=== PATIENT | male | born 1945 | race African-American/Black ===

== ENCOUNTER 2017-04-06 17:59 | Inpatient (IN) ==
[2017-04-06] MEDS ORDERED: FUROSEMIDE 100 MG/10 ML VIAL IV STA (18:20)
[2017-04-06] MEDS ORDERED: LEVOFLOXACIN INJ 750 MG in PREMIX 1 EACH IV STA (18:20)
[2017-04-06] MEDS ORDERED: TERBUTALINE 1 MG/1 ML VIAL SUBCUT ONE ×4 (18:20→19:38)
[2017-04-06] MEDS ORDERED: ONDANSETRON 4 MG/2 ML VIAL IV STA (18:20)
[2017-04-06] MEDS ORDERED: methylPREDNISolone SOD SUC 125 MG/2 ML VIAL IV STA ×2 (18:20→19:37)
[2017-04-06] MEDS ORDERED: methylPREDNISolone SOD SUC 125 MG/2 ML VIAL ONE ×2 (18:22→19:22)
[2017-04-06] MEDS ORDERED: FUROSEMIDE 40 MG/4 ML VIAL ONE (18:22)
[2017-04-06] MEDS ORDERED: ALBUTEROL 2.5 MG/3 ML NEB RESP TX SCH (18:30)
[2017-04-06 18:38] LABS: Basophils % 0.4 % (0.0-0.8); Eosinophils # 0.1 10*3/uL (0.0-0.87); Eosinophils % 1.2 % (0.00-10.9); Hematocrit 41.2 VOL% (42.0-52.0); Hemoglobin 14.3 GM/DL (14.0-18.0); Immature Granulocytes % 0.2 %; Immature Granulocytes Absolute 0.01 #; Lymphocytes # 1.1 10*3/uL (1.4-4.0); Lymphocytes % 19.9 % (21.2-54.2); Mean Corpuscular HGB Conc 34.7 GM/DL (32-36); Mean Corpuscular Hemoglobin 32 PG (27-34); Mean Corpuscular Volume 91.2 FL (87-102); Mean Platelet Volume 9.6 FL (9.6-12.0); Monocytes # 0.5 10*3/uL (0.11-0.8); Monocytes % 8.5 % (1.7-12.7); Neutrophils # 3.9 10*3/uL (1.4-7.4); Neutrophils % 69.8 % (38.7-73.9); Platelet Count 277 T/CUMM (130-400); Red Blood Count 4.52 MC/CUMM (3.8-5.5); Red Cell Distribution Width 14.4 % (9.3-17.3); White Blood Count 5.6 T/CUMM (4-12)
[2017-04-06 18:49] LABS: PT Patient Result 10.4 SECS; Partial Thromboplastin Time 23.6 SECS (0-40)
[2017-04-06 18:56] LABS: Albumin 3.9 G/DL (3.4-5.0); Bilirubin,Total 0.7 MG/DL (0.2-1.0); CKMB % 5.2 %; Calcium 9.5 MG/DL (8.5-10.1); Osmolality,Calculated 290.5 MOS/KG (273-304); Total Protein 8.1 G/DL (6.4-8.3); Troponin I Only 0.016 NG/ML (0.00-0.045)
[2017-04-06] MEDS ORDERED: ONDANSETRON 4 MG/2 ML VIAL ONE (18:59)
[2017-04-06] MEDS ORDERED: LEVOFLOXACIN INJ 150 ML IV ONE (18:59)
[2017-04-06 20:03] LABS: Allen Test Positive; Pt O2 Delivery Device Other
[2017-04-06 20:04] LABS: ABG Base Excess -4.4 MMOL/L (-2.5-2.5); ABG PO2 222.2 MM HG (80-95); ABG TCO2 30.9 MMOL/L (23-27)
[2017-04-06 20:07] LABS: ABG PH 7.092 (7.35-7.45)
[2017-04-06] MEDS: ENOXAPARIN 40 MG/0.4 ML SYRINGE SUBCUT SCH (21:43)
[2017-04-06] MEDS: SODIUM CHLORIDE 0.9% 1,000 ML IV SCH (21:43)
[2017-04-06 22:07] LABS: ABG Base Excess -5.5 MMOL/L (-2.5-2.5); ABG HCO3 19.8 MMOL/L (20-26); ABG Oxygen Saturation 93.9 % (95-100); ABG PCO2 62.5 MM HG (35-48); ABG PO2 80.8 MM HG (80-95); ABG TCO2 21.8 MMOL/L (23-27)
[2017-04-06 22:10] LABS: ABG PH 7.196 (7.35-7.45)
[2017-04-06] MEDS ORDERED: MAGNESIUM SULF RIDER 2 GM in PREMIX 1 EACH IV ONE (22:25)
[2017-04-06] MEDS ORDERED: MAGNESIUM SULF RIDER 50 ML IV ONE (22:27)
[2017-04-06] MEDS: ALBUTEROL/IPRATROPIUM 3 ML NEB RESP TX SCH (23:06)
[2017-04-07 00:50] LABS: Apearance,Urine CLOUDY (Clear); Bacteria,Urine Many /HPF (Few); Bilirubin,Urine Negative (Negative); Blood, Urine Moderate mg/dL (Negative); Glucose,Urine (UA) Negative (Negative); Hyaline Casts,Urine 4 /LPF (0-3); Ketones,Urine Negative (Negative); Mucus,Urine Occasional /LPF (Occasional); Nitrite,Urine Negative (Negative); Protein,Urine Negative; RBC,Urine 13 /HPF (0-4); Squamous Epithelial Cell,Urine Occasional /HPF (0-10); Urine Color Yellow (Yellow); Urine Specific Gravity 1.016 (1.001-1.035); Urine Urobilinogen < 2.0 EU/DL (0.2-1.0); WBC,Urine 34 /HPF (0-6)
[2017-04-07] MEDS: ALBUTEROL/IPRATROPIUM 3 ML NEB RESP TX SCH ×6 (00:58→19:07)
[2017-04-07] MEDS: methylPREDNISolone SOD SUC 40 MG/1 ML VIAL IV SCH ×3 (02:18→20:03)
[2017-04-07 04:11] LABS: ABG Base Excess -1.3 MMOL/L (-2.5-2.5); ABG HCO3 26.3 MMOL/L (20-26); ABG Oxygen Saturation 91.2 % (95-100); ABG PCO2 56.9 MM HG (35-48); ABG PH 7.283 (7.35-7.45); ABG PO2 62.7 MM HG (80-95); ABG TCO2 28.1 MMOL/L (23-27)
[2017-04-07 06:06] LABS: Hematocrit 37.4 VOL% (42.0-52.0); Hemoglobin 12.8 GM/DL (14.0-18.0); Immature Granulocytes % 0.2 %; Immature Granulocytes Absolute 0.01 #; Lymphocytes # 0.3 10*3/uL (1.4-4.0); Lymphocytes % 5.6 % (21.2-54.2); Mean Corpuscular HGB Conc 34.2 GM/DL (32-36); Mean Corpuscular Hemoglobin 31 PG (27-34); Mean Corpuscular Volume 91.7 FL (87-102); Mean Platelet Volume 9.7 FL (9.6-12.0); Monocytes # 0.1 10*3/uL (0.11-0.8); Monocytes % 2.2 % (1.7-12.7); Neutrophils # 5.6 10*3/uL (1.4-7.4); Platelet Count 228 T/CUMM (130-400); Red Blood Count 4.08 MC/CUMM (3.8-5.5); Red Cell Distribution Width 14.6 % (9.3-17.3)
[2017-04-07 06:39] LABS: Giant Platelets Few; Hypochromasia 1+; Lymphocytes 5 % (20-55); Ovalocytes Slight; Platelet Estimate Adequate; Segmented Neutrophils 93 % (50-85); Total Cells Counted 100
[2017-04-07 06:41] LABS: Osmolality,Calculated 294.3 MOS/KG (273-304); Potassium 4.5 MMOL/L (3.5-5.1)
[2017-04-07] MEDS ORDERED: POTASSIUM CHLORIDE RIDER 10 MEQ in PREMIX 1 EACH IV PRN (07:03)
[2017-04-07] MEDS ORDERED: DEXTROSE 50% 25 GM/50 ML VIAL IV PRN (07:30)
[2017-04-07] MEDS ORDERED: GLUCAGON 1 MG VIAL IM PRN (07:30)
[2017-04-07] MEDS: INSULIN REGULAR 100 UNIT/ML SUBCUT SCH ×4 (07:41→21:16)
[2017-04-07] MEDS ORDERED: POTASSIUM CHLORIDE INJ 40 MEQ in SODIUM CHLORIDE 0.9% 500 ML IV ONE (08:00)
[2017-04-07] MEDS: IPRATROPIUM 500 MCG/2.5 ML NEB RESP TX SCH ×3 (08:17→15:07)
[2017-04-07] MEDS ORDERED: DORZOLAMIDE 2% OPH SOLN 10 ML BOTTLE BOTH EYES SCH (09:00)
[2017-04-07] MEDS: BRIMONIDINE 0.15% OPH SOLN 1 DROP/DROPS BOTTLE BOTH EYES SCH ×2 (11:39→21:45)
[2017-04-07] MEDS: PANTOPRAZOLE 40 MG TABLET PO SCH (11:40)
[2017-04-07] MEDS: SODIUM CHLORIDE 0.9% 1,000 ML IV SCH (19:50)
[2017-04-07] MEDS: LEVOFLOXACIN INJ 750 MG in PREMIX 1 EACH IV SCH (20:03)
[2017-04-07] MEDS: ENOXAPARIN 40 MG/0.4 ML SYRINGE SUBCUT SCH (21:42)
[2017-04-07] MEDS: DOXAZOSIN 4 MG TABLET PO SCH (21:43)
[2017-04-07] MEDS: BIMATOPROST 0.01% OPH SOLN 2.5 ML BOTTLE BOTH EYES SCH (21:45)
[2017-04-07] MEDS: DORZOLAMIDE BOTH EYES SCH (21:45)
[2017-04-08] MEDS: methylPREDNISolone SOD SUC 40 MG/1 ML VIAL IV SCH ×4 (02:09→22:25)
[2017-04-08 03:53] LABS: ABG Base Excess 1.4 MMOL/L (-2.5-2.5); ABG HCO3 25.7 MMOL/L (20-26); ABG Oxygen Saturation 99.1 % (95-100); ABG PH 7.371 (7.35-7.45); ABG TCO2 24.4 MMOL/L (23-27); Allen Test Positive
[2017-04-08] MEDS: ALBUTEROL/IPRATROPIUM 3 ML NEB RESP TX SCH ×4 (03:56→20:05)
[2017-04-08 05:00] LABS: Hematocrit 32.8 VOL% (42.0-52.0); Hemoglobin 11.4 GM/DL (14.0-18.0); Immature Granulocytes % 0.5 %; Immature Granulocytes Absolute 0.03 #; Lymphocytes # 0.5 10*3/uL (1.4-4.0); Lymphocytes % 7.1 % (21.2-54.2); Mean Corpuscular HGB Conc 34.8 GM/DL (32-36); Mean Corpuscular Hemoglobin 32 PG (27-34); Mean Corpuscular Volume 91.9 FL (87-102); Mean Platelet Volume 9.9 FL (9.6-12.0); Monocytes # 0.3 10*3/uL (0.11-0.8); Monocytes % 4.1 % (1.7-12.7); Neutrophils # 5.6 10*3/uL (1.4-7.4); Neutrophils % 88.3 % (38.7-73.9); Platelet Count 200 T/CUMM (130-400); Red Blood Count 3.57 MC/CUMM (3.8-5.5); Red Cell Distribution Width 14.8 % (9.3-17.3); White Blood Count 6.4 T/CUMM (4-12)
[2017-04-08 05:35] LABS: Calcium 8.6 MG/DL (8.5-10.1); Magnesium 2.4 MG/DL (1.8-2.4); Osmolality,Calculated 285.4 MOS/KG (273-304)
[2017-04-08] MEDS: IPRATROPIUM 500 MCG/2.5 ML NEB RESP TX SCH (08:42)
[2017-04-08] MEDS: DORZOLAMIDE BOTH EYES SCH ×2 (09:04→21:50)
[2017-04-08] MEDS: PANTOPRAZOLE 40 MG TABLET PO SCH (09:04)
[2017-04-08] MEDS: BRIMONIDINE 0.15% OPH SOLN 1 DROP/DROPS BOTTLE BOTH EYES SCH ×2 (09:04→21:51)
[2017-04-08] MEDS: LEVOFLOXACIN INJ 750 MG in PREMIX 1 EACH IV SCH (09:06)
[2017-04-08] MEDS: INSULIN REGULAR 100 UNIT/ML SUBCUT SCH ×4 (09:10→21:48)
[2017-04-08] MEDS: LOSARTAN/HCTZ 50-12.5 MG TABLET PO SCH (11:29)
[2017-04-08] MEDS: METOPROLOL TARTRATE 25 MG TABLET PO SCH ×2 (11:29→21:48)
[2017-04-08] MEDS: DOXAZOSIN 4 MG TABLET PO SCH (21:48)
[2017-04-08] MEDS: BIMATOPROST 0.01% OPH SOLN 2.5 ML BOTTLE BOTH EYES SCH (21:52)
[2017-04-09] MEDS: ALBUTEROL/IPRATROPIUM 3 ML NEB RESP TX SCH ×4 (01:09→19:30)
[2017-04-09] MEDS ORDERED: LIDOCAINE 2% TOP JELLY 20 ML VIAL INTRAURETH ONE (06:23)
[2017-04-09] MEDS: INSULIN REGULAR 100 UNIT/ML SUBCUT SCH ×4 (07:48→21:51)
[2017-04-09] MEDS: LOSARTAN/HCTZ 50-12.5 MG TABLET PO SCH (08:44)
[2017-04-09] MEDS: methylPREDNISolone SOD SUC 40 MG/1 ML VIAL IV SCH ×2 (08:44→20:37)
[2017-04-09] MEDS: METOPROLOL TARTRATE 25 MG TABLET PO SCH ×2 (08:44→20:35)
[2017-04-09] MEDS: PANTOPRAZOLE 40 MG TABLET PO SCH (08:44)
[2017-04-09] MEDS: DORZOLAMIDE BOTH EYES SCH ×2 (08:45→20:37)
[2017-04-09] MEDS: LEVOFLOXACIN INJ 750 MG in PREMIX 1 EACH IV SCH (08:45)
[2017-04-09] MEDS: BRIMONIDINE 0.15% OPH SOLN 1 DROP/DROPS BOTTLE BOTH EYES SCH ×2 (08:46→20:37)
[2017-04-09] MEDS: DOXAZOSIN 4 MG TABLET PO SCH (20:35)
[2017-04-09] MEDS: ATORVASTATIN 10 MG TABLET PO SCH (20:35)
[2017-04-09] MEDS: BIMATOPROST 0.01% OPH SOLN 2.5 ML BOTTLE BOTH EYES SCH (20:37)
[2017-04-10 06:18] LABS: Eosinophils % 0.2 % (0.00-10.9); Hematocrit 37.7 VOL% (42.0-52.0); Hemoglobin 13.1 GM/DL (14.0-18.0); Immature Granulocytes % 0.3 %; Immature Granulocytes Absolute 0.02 #; Lymphocytes # 1.9 10*3/uL (1.4-4.0); Lymphocytes % 29.2 % (21.2-54.2); Mean Corpuscular HGB Conc 34.7 GM/DL (32-36); Mean Corpuscular Hemoglobin 32 PG (27-34); Mean Corpuscular Volume 90.6 FL (87-102); Mean Platelet Volume 9.9 FL (9.6-12.0); Monocytes # 0.6 10*3/uL (0.11-0.8); Monocytes % 9.3 % (1.7-12.7); Neutrophils # 4.1 10*3/uL (1.4-7.4); Platelet Count 223 T/CUMM (130-400); Red Blood Count 4.16 MC/CUMM (3.8-5.5); Red Cell Distribution Width 14.1 % (9.3-17.3); White Blood Count 6.6 T/CUMM (4-12)
[2017-04-10 06:52] LABS: Calcium 8.6 MG/DL (8.5-10.1); Magnesium 2.3 MG/DL (1.8-2.4); Osmolality,Calculated 276.8 MOS/KG (273-304); Potassium 4.1 MMOL/L (3.5-5.1); Risk Ratio 2.54; VLDL CHOLESTEROL 10.8 MG/DL
[2017-04-10] MEDS: ALBUTEROL/IPRATROPIUM 3 ML NEB RESP TX SCH ×4 (08:37→19:42)
[2017-04-10] MEDS ORDERED: ASPIRIN EC 81 MG TABLET PO SCH (09:00)
[2017-04-10] MEDS: DORZOLAMIDE BOTH EYES SCH (09:04)
[2017-04-10] MEDS: PANTOPRAZOLE 40 MG TABLET PO SCH (09:04)
[2017-04-10] MEDS: METOPROLOL TARTRATE 25 MG TABLET PO SCH (09:04)
[2017-04-10] MEDS: LOSARTAN/HCTZ 50-12.5 MG TABLET PO SCH (09:04)
[2017-04-10] MEDS: LEVOFLOXACIN INJ 750 MG in PREMIX 1 EACH IV SCH (09:04)
[2017-04-10] MEDS: methylPREDNISolone SOD SUC 40 MG/1 ML VIAL IV SCH (09:05)
[2017-04-10] MEDS: BRIMONIDINE 0.15% OPH SOLN 1 DROP/DROPS BOTTLE BOTH EYES SCH (09:05)
[2017-04-10] MEDS: INSULIN REGULAR 100 UNIT/ML SUBCUT SCH ×3 (09:09→16:43)
[2017-04-11] MEDS: ALBUTEROL/IPRATROPIUM 3 ML NEB RESP TX SCH ×3 (00:52→13:47)
[2017-04-11] MEDS: methylPREDNISolone SOD SUC 40 MG/1 ML VIAL IV SCH ×2 (01:13→09:25)
[2017-04-11] MEDS: DOXAZOSIN 4 MG TABLET PO SCH (01:15)
[2017-04-11] MEDS: ATORVASTATIN 10 MG TABLET PO SCH (01:16)
[2017-04-11] MEDS: BIMATOPROST 0.01% OPH SOLN 2.5 ML BOTTLE BOTH EYES SCH (01:16)
[2017-04-11] MEDS: METOPROLOL TARTRATE 25 MG TABLET PO SCH ×2 (01:16→09:29)
[2017-04-11] MEDS: BRIMONIDINE 0.15% OPH SOLN 1 DROP/DROPS BOTTLE BOTH EYES SCH ×2 (01:16→09:25)
[2017-04-11] MEDS: DORZOLAMIDE BOTH EYES SCH ×2 (01:16→09:25)
[2017-04-11] MEDS: INSULIN REGULAR 100 UNIT/ML SUBCUT SCH ×3 (01:19→12:23)
[2017-04-11] MEDS ORDERED: LIDOCAINE 2% TOP JELLY 20 ML VIAL INTRAURETH ONE ×2 (06:57→07:34)
[2017-04-11 07:01] LABS: Hematocrit 38.9 VOL% (42.0-52.0); Hemoglobin 13.4 GM/DL (14.0-18.0); Immature Granulocytes % 0.2 %; Immature Granulocytes Absolute 0.01 #; Lymphocytes % 22.9 % (21.2-54.2); Mean Corpuscular HGB Conc 34.4 GM/DL (32-36); Mean Corpuscular Hemoglobin 31 PG (27-34); Mean Corpuscular Volume 90.7 FL (87-102); Mean Platelet Volume 9.7 FL (9.6-12.0); Monocytes # 0.2 10*3/uL (0.11-0.8); Monocytes % 5.6 % (1.7-12.7); Neutrophils % 71.3 % (38.7-73.9); Platelet Count 208 T/CUMM (130-400); Red Blood Count 4.29 MC/CUMM (3.8-5.5); White Blood Count 4.1 T/CUMM (4-12)
[2017-04-11] MEDS ORDERED: LACTATED RINGERS 1,000 ML IV SCH (07:30)
[2017-04-11 07:37] LABS: Calcium 9.1 MG/DL (8.5-10.1); Potassium 4.2 MMOL/L (3.5-5.1)
[2017-04-11] MEDS ORDERED: MIDAZOLAM 2 MG/2 ML VIAL ONE (08:04)
[2017-04-11] MEDS ORDERED: EPINEPHrine 1 MG/ML VIAL ONE (08:04)
[2017-04-11] MEDS ORDERED: fentaNYL 100 MCG/2 ML VIAL ONE (08:04)
[2017-04-11] MEDS ORDERED: PROPOFOL 200 MG/20 ML VIAL IV ONE (08:05)
[2017-04-11] MEDS: LEVOFLOXACIN INJ 750 MG in PREMIX 1 EACH IV SCH (09:25)
[2017-04-11] MEDS: PANTOPRAZOLE 40 MG TABLET PO SCH (09:26)
[2017-04-11] MEDS: LOSARTAN/HCTZ 50-12.5 MG TABLET PO SCH (09:29)
[2017-04-11 12:26] VITALS: BP 106/58
== END 2017-04-11 15:51 | disposition home or self-care (01) | DRG 987 ==
LOC: N.ED 17:59 → N.EDINP 20:16 → SUATTDRO 20:16 → N.ICU 20:54 → N.5E 04-08 10:38
PROVIDERS: ADMIT Hospitalist; ATTEND Internal Medicine

== ENCOUNTER 2017-04-25 09:53 | Inpatient (IN) ==
[2017-04-25] MEDS ORDERED: MAGNESIUM SULF RIDER 2 GM in PREMIX 1 EACH IV STA (10:05)
[2017-04-25] MEDS ORDERED: SODIUM CHLORIDE 0.9% 500 ML IV STA (10:05)
[2017-04-25] MEDS ORDERED: methylPREDNISolone SOD SUC 125 MG/2 ML VIAL IV STA (10:05)
[2017-04-25] MEDS ORDERED: methylPREDNISolone SOD SUC 125 MG/2 ML VIAL ONE (10:22)
[2017-04-25 10:23] LABS: Basophils % 0.5 % (0.0-0.8); Eosinophils # 0.3 10*3/uL (0.0-0.87); Eosinophils % 4.6 % (0.00-10.9); Hematocrit 40.7 VOL% (42.0-52.0); Hemoglobin 13.6 GM/DL (14.0-18.0); Immature Granulocytes % 0.4 %; Immature Granulocytes Absolute 0.02 #; Lymphocytes # 1.6 10*3/uL (1.4-4.0); Lymphocytes % 27.8 % (21.2-54.2); Mean Corpuscular HGB Conc 33.4 GM/DL (32-36); Mean Corpuscular Hemoglobin 32 PG (27-34); Mean Corpuscular Volume 94.4 FL (87-102); Mean Platelet Volume 9.7 FL (9.6-12.0); Monocytes # 0.5 10*3/uL (0.11-0.8); Monocytes % 9.5 % (1.7-12.7); Neutrophils # 3.3 10*3/uL (1.4-7.4); Neutrophils % 57.2 % (38.7-73.9); Platelet Count 233 T/CUMM (130-400); Red Blood Count 4.31 MC/CUMM (3.8-5.5); Red Cell Distribution Width 14.6 % (9.3-17.3); White Blood Count 5.7 T/CUMM (4-12)
[2017-04-25] MEDS ORDERED: ALBUTEROL 2.5 MG/3 ML NEB RESP TX SCH (10:30)
[2017-04-25 11:13] LABS: Albumin 3.6 G/DL (3.4-5.0); Bilirubin,Total 1.1 MG/DL (0.2-1.0); Calcium 8.9 MG/DL (8.5-10.1); Osmolality,Calculated 276.8 MOS/KG (273-304); Potassium 4.4 MMOL/L (3.5-5.1); Total Protein 7.2 G/DL (6.4-8.3)
[2017-04-25] MEDS ORDERED: ONDANSETRON 4 MG/2 ML VIAL IV PRN (12:39)
[2017-04-25] MEDS ORDERED: ACETAMINOPHEN 325 MG TABLET PO PRN (12:39)
[2017-04-25] MEDS ORDERED: ALBUTEROL 2.5 MG/3 ML NEB RESP TX PRN (12:47)
[2017-04-25] MEDS: methylPREDNISolone SOD SUC 125 MG/2 ML VIAL IV SCH ×2 (18:43→21:51)
[2017-04-25] MEDS: ALBUTEROL 2.5 MG/3 ML NEB RESP TX SCH (21:25)
[2017-04-25] MEDS: MONTELUKAST 10 MG TABLET PO SCH (21:51)
[2017-04-25] MEDS: FLUTICASONE/SALMETEROL 500-50 DISKUS 14 DOSE INH SCH (21:57)
[2017-04-26] MEDS: ALBUTEROL 2.5 MG/3 ML NEB RESP TX SCH ×8 (02:25→23:50)
[2017-04-26] MEDS: methylPREDNISolone SOD SUC 125 MG/2 ML VIAL IV SCH ×4 (04:48→22:41)
[2017-04-26 06:29] LABS: Hematocrit 35.1 VOL% (42.0-52.0); Hemoglobin 11.8 GM/DL (14.0-18.0); Immature Granulocytes % 0.3 %; Immature Granulocytes Absolute 0.01 #; Lymphocytes # 0.6 10*3/uL (1.4-4.0); Lymphocytes % 17.3 % (21.2-54.2); Mean Corpuscular HGB Conc 33.6 GM/DL (32-36); Mean Corpuscular Hemoglobin 32 PG (27-34); Mean Corpuscular Volume 93.9 FL (87-102); Mean Platelet Volume 9.9 FL (9.6-12.0); Monocytes # 0.1 10*3/uL (0.11-0.8); Monocytes % 3.2 % (1.7-12.7); Neutrophils # 2.7 10*3/uL (1.4-7.4); Neutrophils % 79.2 % (38.7-73.9); Platelet Count 206 T/CUMM (130-400); Red Blood Count 3.74 MC/CUMM (3.8-5.5); Red Cell Distribution Width 14.6 % (9.3-17.3); White Blood Count 3.4 T/CUMM (4-12)
[2017-04-26 07:04] LABS: Calcium 8.6 MG/DL (8.5-10.1); Osmolality,Calculated 277.8 MOS/KG (273-304); Potassium 4.4 MMOL/L (3.5-5.1)
[2017-04-26] MEDS ORDERED: ALBUTEROL 2.5 MG/3 ML NEB RESP TX PRN (07:23)
[2017-04-26 07:38] LABS: Apearance,Urine CLEAR (Clear); Bilirubin,Urine Negative (Negative); Blood, Urine Negative (Negative); Glucose,Urine (UA) 50 mg/dL (Negative); Ketones,Urine Negative (Negative); Mucus,Urine Occasional /LPF (Occasional); Nitrite,Urine Negative (Negative); Protein,Urine Negative; RBC,Urine 2 /HPF (0-4); Squamous Epithelial Cell,Urine Occasional /HPF (0-10); Urine Color Yellow (Yellow); Urine Specific Gravity 1.024 (1.001-1.035); WBC,Urine 2 /HPF (0-6)
[2017-04-26] MEDS: IPRATROPIUM 500 MCG/2.5 ML NEB RESP TX SCH ×4 (07:42→19:42)
[2017-04-26] MEDS: BRIMONIDINE 0.15% OPH SOLN 1 DROP/DROPS BOTTLE BOTH EYES SCH ×2 (08:53→20:47)
[2017-04-26] MEDS: FLUTICASONE/SALMETEROL 500-50 DISKUS 14 DOSE INH SCH ×2 (08:53→20:50)
[2017-04-26] MEDS: METOPROLOL TARTRATE 25 MG TABLET PO SCH ×2 (08:54→20:46)
[2017-04-26] MEDS: LOSARTAN/HCTZ 50-12.5 MG TABLET PO SCH (08:54)
[2017-04-26] MEDS: DORZOLAMIDE 2% OPH SOLN 10 ML BOTTLE BOTH EYES SCH ×2 (08:54→20:47)
[2017-04-26] MEDS: PANTOPRAZOLE 40 MG TABLET PO SCH (08:54)
[2017-04-26] MEDS: ATORVASTATIN 10 MG TABLET PO SCH (20:45)
[2017-04-26] MEDS: DOXAZOSIN 4 MG TABLET PO SCH (20:45)
[2017-04-26] MEDS: MONTELUKAST 10 MG TABLET PO SCH (20:46)
[2017-04-26] MEDS: BIMATOPROST 0.01% OPH SOLN 2.5 ML BOTTLE BOTH EYES SCH (20:46)
[2017-04-27] MEDS: ALBUTEROL 2.5 MG/3 ML NEB RESP TX SCH ×2 (03:47→08:09)
[2017-04-27] MEDS: methylPREDNISolone SOD SUC 125 MG/2 ML VIAL IV SCH (04:08)
[2017-04-27 06:45] LABS: Hematocrit 34.7 VOL% (42.0-52.0); Hemoglobin 11.9 GM/DL (14.0-18.0); Immature Granulocytes % 0.4 %; Immature Granulocytes Absolute 0.03 #; Lymphocytes # 0.6 10*3/uL (1.4-4.0); Lymphocytes % 7.7 % (21.2-54.2); Mean Corpuscular HGB Conc 34.3 GM/DL (32-36); Mean Corpuscular Hemoglobin 32 PG (27-34); Mean Corpuscular Volume 92.3 FL (87-102); Mean Platelet Volume 10.4 FL (9.6-12.0); Monocytes # 0.1 10*3/uL (0.11-0.8); Monocytes % 1.8 % (1.7-12.7); Neutrophils # 6.9 10*3/uL (1.4-7.4); Neutrophils % 90.1 % (38.7-73.9); Platelet Count 204 T/CUMM (130-400); Red Blood Count 3.76 MC/CUMM (3.8-5.5); White Blood Count 7.7 T/CUMM (4-12)
[2017-04-27 07:24] LABS: Calcium 8.4 MG/DL (8.5-10.1); Osmolality,Calculated 282.5 MOS/KG (273-304)
[2017-04-27] MEDS: IPRATROPIUM 500 MCG/2.5 ML NEB RESP TX SCH ×4 (08:09→20:51)
[2017-04-27] MEDS ORDERED: BISACODYL 5 MG TABLET PO ONE (08:10)
[2017-04-27] MEDS: FLUTICASONE/SALMETEROL 500-50 DISKUS 14 DOSE INH SCH ×2 (08:33→20:18)
[2017-04-27] MEDS: METOPROLOL TARTRATE 25 MG TABLET PO SCH ×2 (08:33→20:16)
[2017-04-27] MEDS: POLYETHYLENE GLYCOL POWDER 17 GM PACK PO SCH (08:33)
[2017-04-27] MEDS: PANTOPRAZOLE 40 MG TABLET PO SCH (08:33)
[2017-04-27] MEDS: predniSONE 10 MG TABLET PO SCH (08:33)
[2017-04-27] MEDS: BRIMONIDINE 0.15% OPH SOLN 1 DROP/DROPS BOTTLE BOTH EYES SCH ×2 (08:33→20:19)
[2017-04-27] MEDS: LOSARTAN/HCTZ 50-12.5 MG TABLET PO SCH (08:33)
[2017-04-27] MEDS: DORZOLAMIDE 2% OPH SOLN 10 ML BOTTLE BOTH EYES SCH ×2 (08:34→20:19)
[2017-04-27] MEDS: DOXAZOSIN 4 MG TABLET PO SCH (20:16)
[2017-04-27] MEDS: MONTELUKAST 10 MG TABLET PO SCH (20:16)
[2017-04-27] MEDS: ATORVASTATIN 10 MG TABLET PO SCH (20:16)
[2017-04-27] MEDS: BIMATOPROST 0.01% OPH SOLN 2.5 ML BOTTLE BOTH EYES SCH (20:18)
[2017-04-28 07:05] LABS: Eosinophils % 0.1 % (0.00-10.9); Hematocrit 33.2 VOL% (42.0-52.0); Hemoglobin 11.3 GM/DL (14.0-18.0); Immature Granulocytes % 0.3 %; Immature Granulocytes Absolute 0.02 #; Lymphocytes # 1.7 10*3/uL (1.4-4.0); Lymphocytes % 23.4 % (21.2-54.2); Mean Corpuscular Hemoglobin 32 PG (27-34); Mean Corpuscular Volume 93.8 FL (87-102); Mean Platelet Volume 10.4 FL (9.6-12.0); Monocytes # 0.6 10*3/uL (0.11-0.8); Monocytes % 7.7 % (1.7-12.7); Neutrophils # 5.1 10*3/uL (1.4-7.4); Neutrophils % 68.5 % (38.7-73.9); Platelet Count 203 T/CUMM (130-400); Red Blood Count 3.54 MC/CUMM (3.8-5.5); Red Cell Distribution Width 14.8 % (9.3-17.3); White Blood Count 7.4 T/CUMM (4-12)
[2017-04-28] MEDS: IPRATROPIUM 500 MCG/2.5 ML NEB RESP TX SCH (07:18)
[2017-04-28 07:32] LABS: Calcium 8.5 MG/DL (8.5-10.1); Osmolality,Calculated 282.4 MOS/KG (273-304); Potassium 4.2 MMOL/L (3.5-5.1)
[2017-04-28] MEDS: POLYETHYLENE GLYCOL POWDER 17 GM PACK PO SCH (08:46)
[2017-04-28] MEDS: METOPROLOL TARTRATE 25 MG TABLET PO SCH (08:46)
[2017-04-28] MEDS: PANTOPRAZOLE 40 MG TABLET PO SCH (08:46)
[2017-04-28] MEDS: FLUTICASONE/SALMETEROL 500-50 DISKUS 14 DOSE INH SCH (08:46)
[2017-04-28] MEDS: predniSONE 10 MG TABLET PO SCH (08:46)
[2017-04-28] MEDS: LOSARTAN/HCTZ 50-12.5 MG TABLET PO SCH (08:46)
[2017-04-28] MEDS: DORZOLAMIDE 2% OPH SOLN 10 ML BOTTLE BOTH EYES SCH (08:46)
[2017-04-28] MEDS: BRIMONIDINE 0.15% OPH SOLN 1 DROP/DROPS BOTTLE BOTH EYES SCH (08:46)
[2017-04-28 08:49] VITALS: BP 123/72
== END 2017-04-28 10:00 | disposition home or self-care (01) | DRG 191 ==
LOC: N.ED 09:53 → N.EDINP 16:42 → N.5E 16:58

== ENCOUNTER 2017-06-03 19:33 | Inpatient (IN) ==
[2017-06-03] MEDS ORDERED: ALBUTEROL/IPRATROPIUM 3 ML NEB RESP TX STA (19:58)
[2017-06-03] MEDS ORDERED: methylPREDNISolone SOD SUC 125 MG/2 ML VIAL IV STA (19:58)
[2017-06-03] MEDS ORDERED: FUROSEMIDE 100 MG/10 ML VIAL IV STA (19:58)
[2017-06-03 20:06] LABS: Basophils # 0.1 10*3/uL (0.0-0.2); Basophils % 0.8 % (0.0-0.8); Eosinophils # 0.2 10*3/uL (0.0-0.87); Eosinophils % 2.4 % (0.00-10.9); Hematocrit 41.8 VOL% (42.0-52.0); Hemoglobin 13.6 GM/DL (14.0-18.0); Immature Granulocytes % 0.2 %; Immature Granulocytes Absolute 0.02 #; Lymphocytes # 1.9 10*3/uL (1.4-4.0); Lymphocytes % 20.1 % (21.2-54.2); Mean Corpuscular HGB Conc 32.5 GM/DL (32-36); Mean Corpuscular Hemoglobin 31 PG (27-34); Mean Corpuscular Volume 95.2 FL (87-102); Mean Platelet Volume 9.2 FL (9.6-12.0); Monocytes # 1.5 10*3/uL (0.11-0.8); Monocytes % 15.7 % (1.7-12.7); Neutrophils # 5.6 10*3/uL (1.4-7.4); Neutrophils % 60.8 % (38.7-73.9); Platelet Count 239 T/CUMM (130-400); Red Blood Count 4.39 MC/CUMM (3.8-5.5); Red Cell Distribution Width 14.7 % (9.3-17.3); White Blood Count 9.2 T/CUMM (4-12)
[2017-06-03] MEDS ORDERED: CEFEPIME 2,000 MG in SODIUM CHLORIDE 0.9% 100 ML IV STA (20:07)
[2017-06-03] MEDS ORDERED: VANCOMYCIN INJ 1,000 MG in SODIUM CHLORIDE 0.9% 250 ML IV STA (20:08)
[2017-06-03 20:09] LABS: VBG Base Excess -1.9 MEQ/L (0-4); VBG HCO3 22.6 MEQ/L (24-28); VBG Oxygen Saturation 87.5 %; VBG PCO2 66.3 MMHG (41-51); VBG PH 7.231
[2017-06-03 20:47] LABS: Albumin 3.6 G/DL (3.4-5.0); Bilirubin,Total 0.4 MG/DL (0.2-1.0); Calcium 8.8 MG/DL (8.5-10.1); Osmolality,Calculated 282.5 MOS/KG (273-304); Total Protein 7.3 G/DL (6.4-8.3); Troponin I Only 0.028 NG/ML (0.00-0.045)
[2017-06-03] MEDS ORDERED: VANCOMYCIN 1,000 MG VIAL ONE (21:12)
[2017-06-03] MEDS ORDERED: FUROSEMIDE 20 MG/2 ML VIAL ONE (21:12)
[2017-06-03] MEDS ORDERED: CEFEPIME 2,000 MG VIAL ONE (21:12)
[2017-06-03] MEDS ORDERED: methylPREDNISolone SOD SUC 125 MG/2 ML VIAL ONE (21:12)
[2017-06-03] MEDS ORDERED: FUROSEMIDE 40 MG/4 ML VIAL ONE (21:12)
[2017-06-03 22:33] LABS: Eosinophils 7 % (0-10); Lymphocytes 9 % (20-55); Segmented Neutrophils 78 % (50-85); Total Cells Counted 100
[2017-06-03 22:34] LABS: Hypochromasia Slight; Platelet Estimate Adequate; Polychromasia Few
[2017-06-03] MEDS ORDERED: ONDANSETRON 4 MG/2 ML VIAL IV PRN (23:11)
[2017-06-03] MEDS ORDERED: ACETAMINOPHEN 325 MG TABLET PO PRN (23:11)
[2017-06-03] MEDS ORDERED: ALBUTEROL 2.5 MG/3 ML NEB RESP TX PRN (23:11)
[2017-06-04] MEDS: ALBUTEROL/IPRATROPIUM 3 ML NEB RESP TX SCH ×4 (00:23→20:48)
[2017-06-04 04:47] LABS: Basophils % 0.3 % (0.0-0.8); Hemoglobin 12.5 GM/DL (14.0-18.0); Immature Granulocytes % 0.4 %; Immature Granulocytes Absolute 0.03 #; Lymphocytes # 0.2 10*3/uL (1.4-4.0); Lymphocytes % 3.3 % (21.2-54.2); Mean Corpuscular HGB Conc 32.9 GM/DL (32-36); Mean Corpuscular Hemoglobin 31 PG (27-34); Mean Corpuscular Volume 94.3 FL (87-102); Mean Platelet Volume 10.1 FL (9.6-12.0); Monocytes # 0.1 10*3/uL (0.11-0.8); Monocytes % 1.3 % (1.7-12.7); Neutrophils # 6.5 10*3/uL (1.4-7.4); Neutrophils % 94.7 % (38.7-73.9); Platelet Count 224 T/CUMM (130-400); Red Blood Count 4.03 MC/CUMM (3.8-5.5); Red Cell Distribution Width 14.8 % (9.3-17.3); White Blood Count 6.9 T/CUMM (4-12)
[2017-06-04 05:00] LABS: Calcium 9.1 MG/DL (8.5-10.1); Osmolality,Calculated 280.5 MOS/KG (273-304); Potassium 4.3 MMOL/L (3.5-5.1)
[2017-06-04 05:16] LABS: Hypochromasia 1+; Lymphocytes 2 % (20-55); Nucleated Red Blood Cells 1 (0-5); Platelet Estimate Normal; Segmented Neutrophils 96 % (50-85); Total Cells Counted 100
[2017-06-04] MEDS ORDERED: cefTRIAXone 1,000 MG in SYRINGE 1 EACH IV SCH (06:00)
[2017-06-04] MEDS ORDERED: cefTRIAXone 1,000 MG VIAL ONE (07:23)
[2017-06-04] MEDS ORDERED: methylPREDNISolone SOD SUC 40 MG/1 ML VIAL ONE (07:23)
[2017-06-04] MEDS: methylPREDNISolone SOD SUC 40 MG/1 ML VIAL IV SCH ×3 (07:35→22:26)
[2017-06-04] MEDS ORDERED: LEVOFLOXACIN INJ 100 ML IV ONE (10:57)
[2017-06-04] MEDS ORDERED: ENOXAPARIN 40 MG/0.4 ML SYRINGE ONE (10:57)
[2017-06-04] MEDS ORDERED: CEFEPIME 1,000 MG VIAL ONE (10:57)
[2017-06-04] MEDS ORDERED: PANTOPRAZOLE 40 MG TABLET PO ONE (10:57)
[2017-06-04] MEDS: CEFEPIME 1,000 MG in SODIUM CHLORIDE 0.9% 100 ML IV SCH ×2 (11:00→22:25)
[2017-06-04] MEDS: ENOXAPARIN 40 MG/0.4 ML SYRINGE SUBCUT SCH (11:00)
[2017-06-04] MEDS: PANTOPRAZOLE 40 MG TABLET PO SCH (11:00)
[2017-06-04] MEDS: LEVOFLOXACIN INJ 500 MG in PREMIX 1 EACH IV SCH (11:09)
[2017-06-04] MEDS: BRIMONIDINE 0.15% OPH SOLN 1 DROP/DROPS BOTTLE BOTH EYES SCH (20:39)
[2017-06-04] MEDS: DOXAZOSIN 4 MG TABLET PO SCH (20:39)
[2017-06-04] MEDS: BIMATOPROST 0.01% OPH SOLN 2.5 ML BOTTLE BOTH EYES SCH (20:39)
[2017-06-04] MEDS: METOPROLOL TARTRATE 25 MG TABLET PO SCH (20:39)
[2017-06-04] MEDS: MONTELUKAST 10 MG TABLET PO SCH (20:39)
[2017-06-04] MEDS: ATORVASTATIN 10 MG TABLET PO SCH (20:39)
[2017-06-04] MEDS: DORZOLAMIDE 2% OPH SOLN 10 ML BOTTLE BOTH EYES SCH (22:31)
[2017-06-05] MEDS: ALBUTEROL/IPRATROPIUM 3 ML NEB RESP TX SCH ×4 (00:08→18:59)
[2017-06-05] MEDS: methylPREDNISolone SOD SUC 40 MG/1 ML VIAL IV SCH ×2 (06:39→16:53)
[2017-06-05] MEDS ORDERED: NON-FORMULARY MEDICATION (Tiotropium Inhalation 18 MCG) INH SCH (09:00)
[2017-06-05] MEDS: PANTOPRAZOLE 40 MG TABLET PO SCH (09:56)
[2017-06-05] MEDS: AZITHROMYCIN 250 MG TABLET PO SCH (09:56)
[2017-06-05] MEDS: ENOXAPARIN 40 MG/0.4 ML SYRINGE SUBCUT SCH (09:56)
[2017-06-05] MEDS: BRIMONIDINE 0.15% OPH SOLN 1 DROP/DROPS BOTTLE BOTH EYES SCH ×2 (09:57→22:51)
[2017-06-05] MEDS: CEFEPIME 1,000 MG in SYRINGE 1 EACH IV SCH ×2 (09:58→22:41)
[2017-06-05] MEDS: DORZOLAMIDE 2% OPH SOLN 10 ML BOTTLE BOTH EYES SCH (10:00)
[2017-06-05] MEDS: METOPROLOL TARTRATE 25 MG TABLET PO SCH ×2 (10:00→22:51)
[2017-06-05] MEDS: LEVOFLOXACIN INJ 500 MG in PREMIX 1 EACH IV SCH (10:05)
[2017-06-05] MEDS: LOSARTAN 25 MG TABLET PO SCH (12:28)
[2017-06-05] MEDS: MONTELUKAST 10 MG TABLET PO SCH (22:50)
[2017-06-05] MEDS: ATORVASTATIN 10 MG TABLET PO SCH (22:50)
[2017-06-05] MEDS: DOXAZOSIN 4 MG TABLET PO SCH (22:50)
[2017-06-05] MEDS: BIMATOPROST 0.01% OPH SOLN 2.5 ML BOTTLE BOTH EYES SCH (22:51)
[2017-06-06] MEDS: ALBUTEROL/IPRATROPIUM 3 ML NEB RESP TX SCH ×4 (00:39→20:03)
[2017-06-06] MEDS: DORZOLAMIDE 2% OPH SOLN 10 ML BOTTLE BOTH EYES SCH ×3 (01:25→20:39)
[2017-06-06] MEDS: methylPREDNISolone SOD SUC 40 MG/1 ML VIAL IV SCH ×3 (01:29→20:34)
[2017-06-06] MEDS: CEFEPIME 1,000 MG in SYRINGE 1 EACH IV SCH ×2 (09:10→20:34)
[2017-06-06] MEDS: BRIMONIDINE 0.15% OPH SOLN 1 DROP/DROPS BOTTLE BOTH EYES SCH ×2 (09:18→20:38)
[2017-06-06] MEDS: LEVOFLOXACIN INJ 500 MG in PREMIX 1 EACH IV SCH (09:18)
[2017-06-06] MEDS: ENOXAPARIN 40 MG/0.4 ML SYRINGE SUBCUT SCH (09:18)
[2017-06-06] MEDS: METOPROLOL TARTRATE 25 MG TABLET PO SCH ×2 (09:18→20:33)
[2017-06-06] MEDS: LOSARTAN 25 MG TABLET PO SCH (09:18)
[2017-06-06] MEDS: PANTOPRAZOLE 40 MG TABLET PO SCH (09:18)
[2017-06-06] MEDS: MONTELUKAST 10 MG TABLET PO SCH (20:33)
[2017-06-06] MEDS: ATORVASTATIN 10 MG TABLET PO SCH (20:33)
[2017-06-06] MEDS: DOXAZOSIN 4 MG TABLET PO SCH (20:34)
[2017-06-06] MEDS: BIMATOPROST 0.01% OPH SOLN 2.5 ML BOTTLE BOTH EYES SCH (20:36)
[2017-06-07] MEDS: ALBUTEROL/IPRATROPIUM 3 ML NEB RESP TX SCH ×4 (00:06→20:14)
[2017-06-07 05:21] LABS: Basophils % 0.3 % (0.0-0.8); Hematocrit 40.1 VOL% (42.0-52.0); Hemoglobin 13.5 GM/DL (14.0-18.0); Immature Granulocytes % 0.3 %; Immature Granulocytes Absolute 0.01 #; Lymphocytes # 0.8 10*3/uL (1.4-4.0); Lymphocytes % 26.9 % (21.2-54.2); Mean Corpuscular HGB Conc 33.7 GM/DL (32-36); Mean Corpuscular Hemoglobin 31 PG (27-34); Mean Corpuscular Volume 92.8 FL (87-102); Mean Platelet Volume 9.7 FL (9.6-12.0); Monocytes # 0.4 10*3/uL (0.11-0.8); Monocytes % 14.6 % (1.7-12.7); Neutrophils # 1.7 10*3/uL (1.4-7.4); Neutrophils % 57.9 % (38.7-73.9); Platelet Count 205 T/CUMM (130-400); Red Blood Count 4.32 MC/CUMM (3.8-5.5); Red Cell Distribution Width 14.9 % (9.3-17.3)
[2017-06-07 05:59] LABS: Calcium 8.6 MG/DL (8.5-10.1); Osmolality,Calculated 285.3 MOS/KG (273-304); Potassium 4.5 MMOL/L (3.5-5.1)
[2017-06-07] MEDS: ENOXAPARIN 40 MG/0.4 ML SYRINGE SUBCUT SCH (08:37)
[2017-06-07] MEDS: AZITHROMYCIN 250 MG TABLET PO SCH (08:38)
[2017-06-07] MEDS: LEVOFLOXACIN INJ 500 MG in PREMIX 1 EACH IV SCH (08:38)
[2017-06-07] MEDS: methylPREDNISolone SOD SUC 40 MG/1 ML VIAL IV SCH (08:38)
[2017-06-07] MEDS: CEFEPIME 1,000 MG in SYRINGE 1 EACH IV SCH ×2 (08:38→20:33)
[2017-06-07] MEDS: LOSARTAN 25 MG TABLET PO SCH (08:38)
[2017-06-07] MEDS: METOPROLOL TARTRATE 25 MG TABLET PO SCH ×2 (08:38→20:32)
[2017-06-07] MEDS: PANTOPRAZOLE 40 MG TABLET PO SCH (08:38)
[2017-06-07] MEDS: DORZOLAMIDE 2% OPH SOLN 10 ML BOTTLE BOTH EYES SCH ×2 (08:44→20:46)
[2017-06-07] MEDS: BRIMONIDINE 0.15% OPH SOLN 1 DROP/DROPS BOTTLE BOTH EYES SCH ×2 (08:58→20:32)
[2017-06-07] MEDS ORDERED: methylPREDNISolone SOD SUC 40 MG/1 ML VIAL IV SCH (10:30)
[2017-06-07] MEDS: MONTELUKAST 10 MG TABLET PO SCH (20:32)
[2017-06-07] MEDS: DOXAZOSIN 4 MG TABLET PO SCH (20:32)
[2017-06-07] MEDS: ATORVASTATIN 10 MG TABLET PO SCH (20:32)
[2017-06-07] MEDS: BIMATOPROST 0.01% OPH SOLN 2.5 ML BOTTLE BOTH EYES SCH (20:33)
[2017-06-08] MEDS: ALBUTEROL/IPRATROPIUM 3 ML NEB RESP TX SCH ×4 (00:25→19:40)
[2017-06-08] MEDS: BRIMONIDINE 0.15% OPH SOLN 1 DROP/DROPS BOTTLE BOTH EYES SCH ×2 (08:32→21:39)
[2017-06-08] MEDS: METOPROLOL TARTRATE 25 MG TABLET PO SCH ×2 (08:32→21:36)
[2017-06-08] MEDS: PANTOPRAZOLE 40 MG TABLET PO SCH (08:33)
[2017-06-08] MEDS: LEVOFLOXACIN INJ 500 MG in PREMIX 1 EACH IV SCH ×2 (08:33→12:03)
[2017-06-08] MEDS: DORZOLAMIDE 2% OPH SOLN 10 ML BOTTLE BOTH EYES SCH ×2 (08:33→21:39)
[2017-06-08] MEDS: LOSARTAN 25 MG TABLET PO SCH (08:33)
[2017-06-08] MEDS: CEFEPIME 1,000 MG in SYRINGE 1 EACH IV SCH ×2 (11:57→21:36)
[2017-06-08] MEDS: ENOXAPARIN 40 MG/0.4 ML SYRINGE SUBCUT SCH (11:57)
[2017-06-08] MEDS: ATORVASTATIN 10 MG TABLET PO SCH (21:35)
[2017-06-08] MEDS: DOXAZOSIN 4 MG TABLET PO SCH (21:35)
[2017-06-08] MEDS: MONTELUKAST 10 MG TABLET PO SCH (21:35)
[2017-06-08] MEDS: BIMATOPROST 0.01% OPH SOLN 2.5 ML BOTTLE BOTH EYES SCH (21:39)
[2017-06-09] MEDS: ALBUTEROL/IPRATROPIUM 3 ML NEB RESP TX SCH ×4 (00:23→19:03)
[2017-06-09] MEDS: LOSARTAN 25 MG TABLET PO SCH (08:54)
[2017-06-09] MEDS: ENOXAPARIN 40 MG/0.4 ML SYRINGE SUBCUT SCH (08:54)
[2017-06-09] MEDS: predniSONE 20 MG TABLET PO SCH (08:54)
[2017-06-09] MEDS: PANTOPRAZOLE 40 MG TABLET PO SCH (08:55)
[2017-06-09] MEDS: METOPROLOL TARTRATE 25 MG TABLET PO SCH ×2 (08:55→20:32)
[2017-06-09] MEDS: CEFEPIME 1,000 MG in SYRINGE 1 EACH IV SCH ×2 (08:55→20:29)
[2017-06-09] MEDS: DORZOLAMIDE 2% OPH SOLN 10 ML BOTTLE BOTH EYES SCH ×2 (08:56→20:29)
[2017-06-09] MEDS: BRIMONIDINE 0.15% OPH SOLN 1 DROP/DROPS BOTTLE BOTH EYES SCH ×2 (08:56→20:29)
[2017-06-09] MEDS: LEVOFLOXACIN INJ 500 MG in PREMIX 1 EACH IV SCH (09:03)
[2017-06-09] MEDS: BIMATOPROST 0.01% OPH SOLN 2.5 ML BOTTLE BOTH EYES SCH (20:29)
[2017-06-09] MEDS: DOXAZOSIN 4 MG TABLET PO SCH (20:32)
[2017-06-09] MEDS: ATORVASTATIN 10 MG TABLET PO SCH (20:32)
[2017-06-09] MEDS: MONTELUKAST 10 MG TABLET PO SCH (20:32)
[2017-06-10] MEDS: ALBUTEROL/IPRATROPIUM 3 ML NEB RESP TX SCH ×2 (00:53→07:16)
[2017-06-10 05:30] LABS: Eosinophils % 0.7 % (0.00-10.9); Hematocrit 38.2 VOL% (42.0-52.0); Hemoglobin 12.9 GM/DL (14.0-18.0); Lymphocytes # 2.1 10*3/uL (1.4-4.0); Lymphocytes % 75.3 % (21.2-54.2); Mean Corpuscular HGB Conc 33.8 GM/DL (32-36); Mean Corpuscular Hemoglobin 31 PG (27-34); Mean Corpuscular Volume 90.7 FL (87-102); Mean Platelet Volume 9.7 FL (9.6-12.0); Monocytes # 0.4 10*3/uL (0.11-0.8); Monocytes % 13.4 % (1.7-12.7); Neutrophils # 0.3 10*3/uL (1.4-7.4); Neutrophils % 10.6 % (38.7-73.9); Platelet Count 164 T/CUMM (130-400); Red Blood Count 4.21 MC/CUMM (3.8-5.5); Red Cell Distribution Width 14.1 % (9.3-17.3); White Blood Count 2.8 T/CUMM (4-12)
[2017-06-10 05:47] LABS: Calcium 8.5 MG/DL (8.5-10.1); Magnesium 2.2 MG/DL (1.8-2.4); Osmolality,Calculated 277.5 MOS/KG (273-304); Potassium 4.3 MMOL/L (3.5-5.1)
[2017-06-10 06:00] LABS: Atypical Lymphocytes S; Eosinophils 1 % (0-10); Giant Platelets Few; Hypochromasia 1+; Lymphocytes 79 % (20-55); Platelet Estimate Normal; Segmented Neutrophils 6 % (50-85); Total Cells Counted 100
[2017-06-10 07:37] VITALS: BP 122/54
[2017-06-10] MEDS: ENOXAPARIN 40 MG/0.4 ML SYRINGE SUBCUT SCH (09:55)
[2017-06-10] MEDS: AZITHROMYCIN 250 MG TABLET PO SCH (09:56)
[2017-06-10] MEDS: DORZOLAMIDE 2% OPH SOLN 10 ML BOTTLE BOTH EYES SCH (09:56)
[2017-06-10] MEDS: METOPROLOL TARTRATE 25 MG TABLET PO SCH (09:56)
[2017-06-10] MEDS: PANTOPRAZOLE 40 MG TABLET PO SCH (09:56)
[2017-06-10] MEDS: LOSARTAN 25 MG TABLET PO SCH (09:56)
[2017-06-10] MEDS: BRIMONIDINE 0.15% OPH SOLN 1 DROP/DROPS BOTTLE BOTH EYES SCH (09:56)
[2017-06-10] MEDS: predniSONE 20 MG TABLET PO SCH (09:56)
[2017-06-10] MEDS: CEFEPIME 1,000 MG in SYRINGE 1 EACH IV SCH (10:11)
[2017-06-10] MEDS: LEVOFLOXACIN INJ 500 MG in PREMIX 1 EACH IV SCH (10:11)
== END 2017-06-10 11:32 | disposition home or self-care (01) | DRG 177 ==
LOC: N.ED 19:33 → SUATTDRO 23:11 → N.ADMINP 23:11 → N.2E 06-04 12:24
PROVIDERS: ADMIT Internal Medicine; ATTEND Internal Medicine

== ENCOUNTER 2017-07-04 19:43 | Inpatient (IN) ==
[2017-07-04] MEDS ORDERED: methylPREDNISolone SOD SUC 125 MG/2 ML VIAL IV STA ×2 (20:14→21:06)
[2017-07-04] MEDS ORDERED: AZITHROMYCIN INJ 500 MG in SODIUM CHLORIDE 0.9% 250 ML IV STA (20:14)
[2017-07-04] MEDS ORDERED: cefTRIAXone 1,000 MG in SODIUM CHLORIDE 0.9% 100 ML IV STA (20:14)
[2017-07-04] MEDS ORDERED: MAGNESIUM SULF RIDER 2 GM in PREMIX 1 EACH IV STA (20:14)
[2017-07-04] MEDS ORDERED: LEVOFLOXACIN INJ 750 MG in PREMIX 1 EACH IV STA (20:21)
[2017-07-04] MEDS ORDERED: ALBUTEROL NEB SOLN 5 MG/ML 20 ML/BOTTLE RESP TX SCH (20:30)
[2017-07-04] MEDS ORDERED: MAGNESIUM SULF RIDER 50 ML IV ONE (20:31)
[2017-07-04] MEDS ORDERED: methylPREDNISolone SOD SUC 125 MG/2 ML VIAL ONE ×2 (20:31→21:36)
[2017-07-04 20:43] LABS: Basophils % 0.2 % (0.0-0.8); Eosinophils # 0.2 10*3/uL (0.0-0.87); Eosinophils % 2.5 % (0.00-10.9); Hematocrit 41.4 VOL% (42.0-52.0); Hemoglobin 13.9 GM/DL (14.0-18.0); Immature Granulocytes % 0.2 %; Immature Granulocytes Absolute 0.02 #; Lymphocytes % 12.1 % (21.2-54.2); Mean Corpuscular HGB Conc 33.6 GM/DL (32-36); Mean Corpuscular Hemoglobin 31 PG (27-34); Mean Corpuscular Volume 93.7 FL (87-102); Mean Platelet Volume 9.9 FL (9.6-12.0); Monocytes # 0.6 10*3/uL (0.11-0.8); Monocytes % 7.5 % (1.7-12.7); Neutrophils # 6.4 10*3/uL (1.4-7.4); Neutrophils % 77.5 % (38.7-73.9); Platelet Count 202 T/CUMM (130-400); Red Blood Count 4.42 MC/CUMM (3.8-5.5); Red Cell Distribution Width 14.6 % (9.3-17.3); White Blood Count 8.2 T/CUMM (4-12)
[2017-07-04 20:53] LABS: PT Patient Result 10.1 SECS; Partial Thromboplastin Time 26.2 SECS (0-40)
[2017-07-04] MEDS ORDERED: TERBUTALINE 1 MG/1 ML VIAL SUBCUT ONE (21:36)
[2017-07-04] MEDS ORDERED: LEVOFLOXACIN INJ 150 ML IV ONE (21:36)
[2017-07-04 21:44] LABS: Albumin 3.7 G/DL (3.4-5.0); Bilirubin,Total 0.5 MG/DL (0.2-1.0); Calcium 8.7 MG/DL (8.5-10.1); Osmolality,Calculated 288.3 MOS/KG (273-304); Potassium 4.8 MMOL/L (3.5-5.1)
[2017-07-04] MEDS ORDERED: FUROSEMIDE 40 MG/4 ML VIAL IV STA (21:44)
[2017-07-04 21:45] LABS: Troponin I Only 0.068 NG/ML (0.00-0.045)
[2017-07-04] MEDS: TERBUTALINE 1 MG/1 ML VIAL SUBCUT SCH ×2 (21:53→22:25)
[2017-07-04] MEDS ORDERED: FUROSEMIDE 40 MG/4 ML VIAL ONE (21:55)
[2017-07-04] MEDS ORDERED: KETOROLAC 30 MG/1 ML VIAL IV STA (22:40)
[2017-07-04] MEDS ORDERED: ONDANSETRON 4 MG/2 ML VIAL IV PRN (23:40)
[2017-07-04] MEDS ORDERED: ALBUTEROL 2.5 MG/3 ML NEB RESP TX PRN (23:40)
[2017-07-05] MEDS ORDERED: ACETAMINOPHEN 500 MG TABLET PO PRN (00:04)
[2017-07-05] MEDS ORDERED: DORZOLAMIDE 2% OPH SOLN 10 ML BOTTLE BOTH EYES SCH (00:04)
[2017-07-05] MEDS: DOXAZOSIN 4 MG TABLET PO SCH ×2 (00:23→20:03)
[2017-07-05] MEDS ORDERED: methylPREDNISolone SOD SUC 40 MG/1 ML VIAL ONE (00:32)
[2017-07-05] MEDS: CEFEPIME 1,000 MG in SYRINGE 1 EACH IV SCH ×3 (00:46→15:01)
[2017-07-05] MEDS: TERBUTALINE 1 MG/1 ML VIAL SUBCUT SCH ×2 (00:46→01:15)
[2017-07-05] MEDS: BIMATOPROST 0.01% OPH SOLN 2.5 ML BOTTLE BOTH EYES SCH ×2 (00:50→20:05)
[2017-07-05] MEDS: BRIMONIDINE 0.15% OPH SOLN 1 DROP/DROPS BOTTLE BOTH EYES SCH ×3 (00:50→20:05)
[2017-07-05 01:16] LABS: Eosinophils % 0.2 % (0.00-10.9); Hematocrit 41.4 VOL% (42.0-52.0); Hemoglobin 13.3 GM/DL (14.0-18.0); Immature Granulocytes % 0.4 %; Immature Granulocytes Absolute 0.02 #; Lymphocytes # 0.3 10*3/uL (1.4-4.0); Lymphocytes % 5.5 % (21.2-54.2); Mean Corpuscular HGB Conc 32.1 GM/DL (32-36); Mean Corpuscular Hemoglobin 31 PG (27-34); Mean Corpuscular Volume 95.2 FL (87-102); Mean Platelet Volume 9.5 FL (9.6-12.0); Monocytes # 0.1 10*3/uL (0.11-0.8); Monocytes % 1.3 % (1.7-12.7); Neutrophils # 5.1 10*3/uL (1.4-7.4); Neutrophils % 92.6 % (38.7-73.9); Platelet Count 187 T/CUMM (130-400); Red Blood Count 4.35 MC/CUMM (3.8-5.5); Red Cell Distribution Width 14.5 % (9.3-17.3); White Blood Count 5.5 T/CUMM (4-12)
[2017-07-05] MEDS: methylPREDNISolone SOD SUC 40 MG/1 ML VIAL IV SCH ×4 (01:22→20:03)
[2017-07-05 01:43] LABS: Osmolality,Calculated 287.3 MOS/KG (273-304); Potassium 4.4 MMOL/L (3.5-5.1)
[2017-07-05 01:44] LABS: Lymphocytes 4 % (20-55); Macrocytosis 1+; Platelet Estimate Normal; Segmented Neutrophils 96 % (50-85); Total Cells Counted 100
[2017-07-05] MEDS ORDERED: ALBUTEROL/IPRATROPIUM 3 ML NEB RESP TX SCH (03:00)
[2017-07-05 03:41] LABS: Apearance,Urine CLEAR (Clear); Bilirubin,Urine Negative (Negative); Blood, Urine Small mg/dL (Negative); Glucose,Urine (UA) Negative (Negative); Hyaline Casts,Urine 8 /LPF (0-3); Ketones,Urine Negative (Negative); Mucus,Urine Occasional /LPF (Occasional); Nitrite,Urine Negative (Negative); Protein,Urine Negative; RBC,Urine 2 /HPF (0-4); Squamous Epithelial Cell,Urine Occasional /HPF (0-10); Urine Color Yellow (Yellow); Urine Urobilinogen < 2.0 EU/DL (0.2-1.0); WBC,Urine 1 /HPF (0-6)
[2017-07-05] MEDS: ALBUTEROL/IPRATROPIUM 3 ML NEB RESP TX SCH ×3 (07:10→20:03)
[2017-07-05] MEDS: ENOXAPARIN 40 MG/0.4 ML SYRINGE SUBCUT SCH (08:54)
[2017-07-05] MEDS: AZITHROMYCIN 250 MG TABLET PO SCH (08:56)
[2017-07-05] MEDS: PANTOPRAZOLE 40 MG TABLET PO SCH (08:56)
[2017-07-05] MEDS: LOSARTAN 25 MG TABLET PO SCH (08:56)
[2017-07-05 10:02] LABS: ABG Base Excess 3.5 MMOL/L (-2.5-2.5); ABG HCO3 28.9 MMOL/L (20-26); ABG PCO2 47.1 MM HG (35-48); ABG PH 7.406 (7.35-7.45); ABG PO2 75.1 MM HG (80-95); ABG TCO2 30.4 MMOL/L (23-27); Allen Test Positive
[2017-07-05] MEDS: FUROSEMIDE 40 MG/4 ML VIAL IV SCH (18:11)
[2017-07-05] MEDS: LEVOFLOXACIN INJ 750 MG in PREMIX 1 EACH IV SCH (20:03)
[2017-07-05] MEDS: MONTELUKAST 10 MG TABLET PO SCH (20:03)
[2017-07-06] MEDS: ALBUTEROL/IPRATROPIUM 3 ML NEB RESP TX SCH ×4 (00:12→21:43)
[2017-07-06] MEDS: CEFEPIME 1,000 MG in SYRINGE 1 EACH IV SCH ×4 (00:37→23:30)
[2017-07-06] MEDS: methylPREDNISolone SOD SUC 40 MG/1 ML VIAL IV SCH ×4 (02:22→20:15)
[2017-07-06] MEDS ORDERED: NEBIVOLOL 5 MG TABLET PO SCH (09:00)
[2017-07-06] MEDS ORDERED: PNEUMOCOCCAL VACCINE (13 VALENT) 0.5 ML SYRINGE IM ONE (09:00)
[2017-07-06] MEDS: ENOXAPARIN 40 MG/0.4 ML SYRINGE SUBCUT SCH (09:42)
[2017-07-06] MEDS: FUROSEMIDE 40 MG/4 ML VIAL IV SCH ×2 (09:42→16:49)
[2017-07-06] MEDS: PANTOPRAZOLE 40 MG TABLET PO SCH (09:43)
[2017-07-06] MEDS: LOSARTAN 25 MG TABLET PO SCH (09:43)
[2017-07-06] MEDS: BRIMONIDINE 0.15% OPH SOLN 1 DROP/DROPS BOTTLE BOTH EYES SCH ×2 (09:44→20:19)
[2017-07-06] MEDS: METOPROLOL TARTRATE 25 MG TABLET PO SCH ×2 (12:51→20:18)
[2017-07-06] MEDS: LEVOFLOXACIN INJ 750 MG in PREMIX 1 EACH IV SCH (20:11)
[2017-07-06] MEDS: DOXAZOSIN 4 MG TABLET PO SCH (20:17)
[2017-07-06] MEDS: NEBIVOLOL 5 MG TABLET PO SCH (20:18)
[2017-07-06] MEDS: MONTELUKAST 10 MG TABLET PO SCH (20:18)
[2017-07-06] MEDS: BIMATOPROST 0.01% OPH SOLN 2.5 ML BOTTLE BOTH EYES SCH (20:20)
[2017-07-06] MEDS: DORZOLAMIDE 2% OPH SOLN 10 ML BOTTLE BOTH EYES SCH (20:20)
[2017-07-07] MEDS: ALBUTEROL/IPRATROPIUM 3 ML NEB RESP TX SCH ×4 (01:35→19:55)
[2017-07-07] MEDS: methylPREDNISolone SOD SUC 40 MG/1 ML VIAL IV SCH ×4 (02:05→22:06)
[2017-07-07] MEDS: FUROSEMIDE 40 MG/4 ML VIAL IV SCH ×2 (08:47→15:09)
[2017-07-07] MEDS: METOPROLOL TARTRATE 25 MG TABLET PO SCH (08:48)
[2017-07-07] MEDS: PANTOPRAZOLE 40 MG TABLET PO SCH (08:48)
[2017-07-07] MEDS: NEBIVOLOL 5 MG TABLET PO SCH (08:48)
[2017-07-07] MEDS: LOSARTAN 25 MG TABLET PO SCH (08:49)
[2017-07-07] MEDS: ENOXAPARIN 40 MG/0.4 ML SYRINGE SUBCUT SCH (08:49)
[2017-07-07] MEDS: BRIMONIDINE 0.15% OPH SOLN 1 DROP/DROPS BOTTLE BOTH EYES SCH ×2 (08:51→22:06)
[2017-07-07] MEDS: CEFEPIME 1,000 MG in SYRINGE 1 EACH IV SCH ×3 (08:56→23:27)
[2017-07-07] MEDS: DORZOLAMIDE 2% OPH SOLN 10 ML BOTTLE BOTH EYES SCH ×2 (08:58→22:07)
[2017-07-07] MEDS: MONTELUKAST 10 MG TABLET PO SCH (22:05)
[2017-07-07] MEDS: METOPROLOL SUCCINATE XL 25 MG TABLET PO SCH (22:05)
[2017-07-07] MEDS: LEVOFLOXACIN INJ 750 MG in PREMIX 1 EACH IV SCH (22:05)
[2017-07-07] MEDS: BIMATOPROST 0.01% OPH SOLN 2.5 ML BOTTLE BOTH EYES SCH (22:06)
[2017-07-07] MEDS: DOXAZOSIN 4 MG TABLET PO SCH (22:11)
[2017-07-08] MEDS: ALBUTEROL/IPRATROPIUM 3 ML NEB RESP TX SCH ×4 (00:29→20:38)
[2017-07-08] MEDS: methylPREDNISolone SOD SUC 40 MG/1 ML VIAL IV SCH ×3 (02:02→22:01)
[2017-07-08] MEDS ORDERED: MAGNESIUM SULF RIDER 2 GM in PREMIX 1 EACH IV PRN (08:22)
[2017-07-08] MEDS ORDERED: DIAZEPAM 5 MG TABLET PO ONE (08:22)
[2017-07-08] MEDS ORDERED: ASPIRIN 325 MG TABLET PO ONE (08:22)
[2017-07-08] MEDS ORDERED: diphenhydrAMINE CAP 25 MG CAPSULE PO ONE (08:22)
[2017-07-08] MEDS ORDERED: POTASSIUM CHLORIDE RIDER 10 MEQ in PREMIX 1 EACH IV PRN (08:22)
[2017-07-08] MEDS: CEFEPIME 1,000 MG in SYRINGE 1 EACH IV SCH ×2 (09:04→15:52)
[2017-07-08] MEDS: LOSARTAN 25 MG TABLET PO SCH (09:06)
[2017-07-08] MEDS: METOPROLOL SUCCINATE XL 25 MG TABLET PO SCH ×2 (09:06→22:02)
[2017-07-08] MEDS: FUROSEMIDE 40 MG/4 ML VIAL IV SCH ×2 (09:11→15:48)
[2017-07-08] MEDS: BRIMONIDINE 0.15% OPH SOLN 1 DROP/DROPS BOTTLE BOTH EYES SCH ×2 (09:34→22:05)
[2017-07-08] MEDS: DORZOLAMIDE 2% OPH SOLN 10 ML BOTTLE BOTH EYES SCH ×2 (09:37→22:07)
[2017-07-08] MEDS: AZITHROMYCIN 250 MG TABLET PO SCH (10:28)
[2017-07-08] MEDS: SODIUM CHLORIDE 0.9% 1,000 ML IV SCH (10:28)
[2017-07-08] MEDS: PANTOPRAZOLE 40 MG TABLET PO SCH (10:28)
[2017-07-08] MEDS: ENOXAPARIN 40 MG/0.4 ML SYRINGE SUBCUT SCH (10:28)
[2017-07-08] MEDS ORDERED: LIDOCAINE 1% 20 ML VIAL ONE (13:36)
[2017-07-08] MEDS ORDERED: MIDAZOLAM 2 MG/2 ML VIAL ONE (13:37)
[2017-07-08] MEDS ORDERED: fentaNYL 100 MCG/2 ML VIAL ONE (13:37)
[2017-07-08] MEDS: LEVOFLOXACIN INJ 750 MG in PREMIX 1 EACH IV SCH (22:01)
[2017-07-08] MEDS: MONTELUKAST 10 MG TABLET PO SCH (22:02)
[2017-07-08] MEDS: BIMATOPROST 0.01% OPH SOLN 2.5 ML BOTTLE BOTH EYES SCH (22:05)
[2017-07-08] MEDS: DOXAZOSIN 4 MG TABLET PO SCH (22:09)
[2017-07-09] MEDS: ALBUTEROL/IPRATROPIUM 3 ML NEB RESP TX SCH ×4 (00:44→19:04)
[2017-07-09] MEDS: CEFEPIME 1,000 MG in SYRINGE 1 EACH IV SCH ×3 (00:54→15:49)
[2017-07-09] MEDS: SODIUM CHLORIDE 0.9% 1,000 ML IV SCH (04:17)
[2017-07-09] MEDS ORDERED: ceFAZolin 1,000 MG in SYRINGE 1 EACH IV ONE (06:00)
[2017-07-09] MEDS ORDERED: ceFAZolin 1,000 MG VIAL IRRIG ONE (06:00)
[2017-07-09] MEDS ORDERED: diphenhydrAMINE CAP 25 MG CAPSULE PO ONE (06:00)
[2017-07-09] MEDS ORDERED: DIAZEPAM 5 MG TABLET PO ONE (06:00)
[2017-07-09 06:27] LABS: Hematocrit 41.1 VOL% (42.0-52.0); Hemoglobin 14.1 GM/DL (14.0-18.0); Immature Granulocytes % 0.4 %; Immature Granulocytes Absolute 0.02 #; Lymphocytes # 0.8 10*3/uL (1.4-4.0); Lymphocytes % 15.8 % (21.2-54.2); Mean Corpuscular HGB Conc 34.3 GM/DL (32-36); Mean Corpuscular Hemoglobin 31 PG (27-34); Mean Corpuscular Volume 89.7 FL (87-102); Mean Platelet Volume 10.2 FL (9.6-12.0); Monocytes # 0.4 10*3/uL (0.11-0.8); Monocytes % 8.1 % (1.7-12.7); Neutrophils # 3.6 10*3/uL (1.4-7.4); Neutrophils % 75.7 % (38.7-73.9); Platelet Count 234 T/CUMM (130-400); Red Blood Count 4.58 MC/CUMM (3.8-5.5); Red Cell Distribution Width 13.9 % (9.3-17.3); White Blood Count 4.8 T/CUMM (4-12)
[2017-07-09 06:55] LABS: Calcium 8.7 MG/DL (8.5-10.1); Osmolality,Calculated 283.8 MOS/KG (273-304); Potassium 4.4 MMOL/L (3.5-5.1)
[2017-07-09] MEDS: LOSARTAN 25 MG TABLET PO SCH (08:58)
[2017-07-09] MEDS: METOPROLOL SUCCINATE XL 25 MG TABLET PO SCH ×2 (08:58→22:17)
[2017-07-09] MEDS: PANTOPRAZOLE 40 MG TABLET PO SCH (08:58)
[2017-07-09] MEDS: FUROSEMIDE 40 MG/4 ML VIAL IV SCH ×2 (08:59→15:46)
[2017-07-09] MEDS: methylPREDNISolone SOD SUC 40 MG/1 ML VIAL IV SCH ×2 (09:01→11:25)
[2017-07-09] MEDS: BRIMONIDINE 0.15% OPH SOLN 1 DROP/DROPS BOTTLE BOTH EYES SCH ×2 (09:05→22:19)
[2017-07-09] MEDS: DORZOLAMIDE 2% OPH SOLN 10 ML BOTTLE BOTH EYES SCH ×2 (09:09→22:20)
[2017-07-09] MEDS ORDERED: LIDOCAINE 1% 20 ML VIAL ONE (10:59)
[2017-07-09] MEDS ORDERED: MIDAZOLAM 2 MG/2 ML VIAL ONE ×3 (11:06→13:22)
[2017-07-09] MEDS ORDERED: fentaNYL 100 MCG/2 ML VIAL ONE ×2 (11:06→13:11)
[2017-07-09] MEDS: Umeclidinium Brm/Vilanterol Tr [Anoro Ellipta] INH SCH (11:26)
[2017-07-09] MEDS ORDERED: TISSUE ADHESIVE 1 EACH APPLICATOR TOP ONE (13:34)
[2017-07-09] MEDS: FUROSEMIDE 40 MG TABLET PO SCH (17:43)
[2017-07-09] MEDS: MONTELUKAST 10 MG TABLET PO SCH (22:16)
[2017-07-09] MEDS: LEVOFLOXACIN 750 MG TABLET PO SCH (22:17)
[2017-07-09] MEDS: DOXAZOSIN 4 MG TABLET PO SCH (22:17)
[2017-07-09] MEDS: BIMATOPROST 0.01% OPH SOLN 2.5 ML BOTTLE BOTH EYES SCH (22:18)
[2017-07-10] MEDS: ALBUTEROL/IPRATROPIUM 3 ML NEB RESP TX SCH ×5 (00:31→23:56)
[2017-07-10 05:08] LABS: Basophils % 0.2 % (0.0-0.8); Eosinophils # 0.1 10*3/uL (0.0-0.87); Eosinophils % 0.8 % (0.00-10.9); Hematocrit 39.8 VOL% (42.0-52.0); Hemoglobin 13.7 GM/DL (14.0-18.0); Immature Granulocytes % 0.3 %; Immature Granulocytes Absolute 0.02 #; Lymphocytes # 1.6 10*3/uL (1.4-4.0); Lymphocytes % 25.4 % (21.2-54.2); Mean Corpuscular HGB Conc 34.4 GM/DL (32-36); Mean Corpuscular Hemoglobin 31 PG (27-34); Mean Corpuscular Volume 90.2 FL (87-102); Mean Platelet Volume 10.2 FL (9.6-12.0); Monocytes # 0.8 10*3/uL (0.11-0.8); Neutrophils # 3.8 10*3/uL (1.4-7.4); Neutrophils % 60.3 % (38.7-73.9); Platelet Count 204 T/CUMM (130-400); Red Blood Count 4.41 MC/CUMM (3.8-5.5); Red Cell Distribution Width 13.9 % (9.3-17.3); White Blood Count 6.3 T/CUMM (4-12)
[2017-07-10 05:21] LABS: Calcium 8.5 MG/DL (8.5-10.1); Osmolality,Calculated 284.7 MOS/KG (273-304); Potassium 4.1 MMOL/L (3.5-5.1)
[2017-07-10] MEDS: methylPREDNISolone SOD SUC 40 MG/1 ML VIAL IV SCH (09:24)
[2017-07-10] MEDS: METOPROLOL SUCCINATE XL 25 MG TABLET PO SCH ×2 (09:24→21:09)
[2017-07-10] MEDS: LOSARTAN 25 MG TABLET PO SCH (09:24)
[2017-07-10] MEDS: AZITHROMYCIN 250 MG TABLET PO SCH (09:24)
[2017-07-10] MEDS: FUROSEMIDE 40 MG TABLET PO SCH ×2 (09:25→16:00)
[2017-07-10] MEDS: BRIMONIDINE 0.15% OPH SOLN 1 DROP/DROPS BOTTLE BOTH EYES SCH ×2 (09:26→21:09)
[2017-07-10] MEDS: DORZOLAMIDE 2% OPH SOLN 10 ML BOTTLE BOTH EYES SCH ×2 (09:27→21:10)
[2017-07-10] MEDS: PANTOPRAZOLE 40 MG TABLET PO SCH (09:28)
[2017-07-10] MEDS ORDERED: predniSONE 20 MG TABLET PO ONE (10:01)
[2017-07-10] MEDS: Umeclidinium Brm/Vilanterol Tr [Anoro Ellipta] INH SCH (14:57)
[2017-07-10] MEDS: LEVOFLOXACIN 750 MG TABLET PO SCH (21:09)
[2017-07-10] MEDS: DOXAZOSIN 4 MG TABLET PO SCH (21:09)
[2017-07-10] MEDS: MONTELUKAST 10 MG TABLET PO SCH (21:09)
[2017-07-10] MEDS: BIMATOPROST 0.01% OPH SOLN 2.5 ML BOTTLE BOTH EYES SCH (21:09)
[2017-07-11] MEDS: ALBUTEROL/IPRATROPIUM 3 ML NEB RESP TX SCH (07:24)
[2017-07-11] MEDS: METOPROLOL SUCCINATE XL 25 MG TABLET PO SCH (08:59)
[2017-07-11] MEDS: FUROSEMIDE 40 MG TABLET PO SCH (08:59)
[2017-07-11] MEDS: LOSARTAN 25 MG TABLET PO SCH (08:59)
[2017-07-11] MEDS: PANTOPRAZOLE 40 MG TABLET PO SCH (08:59)
[2017-07-11] MEDS: DORZOLAMIDE 2% OPH SOLN 10 ML BOTTLE BOTH EYES SCH (09:01)
[2017-07-11] MEDS: BRIMONIDINE 0.15% OPH SOLN 1 DROP/DROPS BOTTLE BOTH EYES SCH (09:01)
[2017-07-11 11:30] VITALS: BP 105/55
== END 2017-07-11 13:19 | disposition swing bed (61) | DRG 981 ==
LOC: N.ED 19:43 → N.EDINP 23:09 → SUATTDRO 23:09 → N.CC 23:56 → N.TELES 07-06 12:30
PROVIDERS: ADMIT Internal Medicine; ATTEND Internal Medicine Cardiovascular Disease

== ENCOUNTER 2017-08-07 09:42 | Inpatient (IN) ==
[2017-08-07] MEDS ORDERED: ONDANSETRON 4 MG/2 ML VIAL IV STA (10:06)
[2017-08-07] MEDS ORDERED: LEVOFLOXACIN INJ 750 MG in PREMIX 1 EACH IV STA (10:06)
[2017-08-07] MEDS ORDERED: methylPREDNISolone SOD SUC 125 MG/2 ML VIAL IV STA ×2 (10:06→11:36)
[2017-08-07] MEDS ORDERED: MAGNESIUM SULF RIDER 2 GM in PREMIX 1 EACH IV STA (10:06)
[2017-08-07] MEDS ORDERED: ALBUTEROL NEB SOLN 5 MG/ML 20 ML/BOTTLE RESP TX SCH (10:30)
[2017-08-07] MEDS ORDERED: LEVOFLOXACIN INJ 150 ML IV ONE (10:34)
[2017-08-07] MEDS ORDERED: methylPREDNISolone SOD SUC 125 MG/2 ML VIAL ONE ×2 (10:35→11:48)
[2017-08-07] MEDS ORDERED: ONDANSETRON 4 MG/2 ML VIAL ONE (10:35)
[2017-08-07] MEDS ORDERED: MAGNESIUM SULF RIDER 50 ML IV ONE (10:35)
[2017-08-07 10:37] LABS: Basophils % 0.7 % (0.0-0.8); Eosinophils # 0.3 10*3/uL (0.0-0.87); Hematocrit 45.4 VOL% (42.0-52.0); Hemoglobin 15.2 GM/DL (14.0-18.0); Immature Granulocytes % 0.2 %; Immature Granulocytes Absolute 0.01 #; Lymphocytes % 24.2 % (21.2-54.2); Mean Corpuscular HGB Conc 33.5 GM/DL (32-36); Mean Corpuscular Hemoglobin 31 PG (27-34); Mean Corpuscular Volume 91.7 FL (87-102); Mean Platelet Volume 9.8 FL (9.6-12.0); Monocytes # 0.4 10*3/uL (0.11-0.8); Monocytes % 9.5 % (1.7-12.7); Neutrophils # 2.6 10*3/uL (1.4-7.4); Neutrophils % 59.4 % (38.7-73.9); Platelet Count 150 T/CUMM (130-400); Red Blood Count 4.95 MC/CUMM (3.8-5.5); Red Cell Distribution Width 14.1 % (9.3-17.3); White Blood Count 4.3 T/CUMM (4-12)
[2017-08-07 10:44] LABS: PT Patient Result 10.1 SECS
[2017-08-07 10:55] LABS: Albumin 3.9 G/DL (3.4-5.0); Bilirubin,Total 0.6 MG/DL (0.2-1.0); CKMB % 4.8 %; Calcium 9.2 MG/DL (8.5-10.1); Osmolality,Calculated 284.3 MOS/KG (273-304); Potassium 3.7 MMOL/L (3.5-5.1); Total Protein 7.6 G/DL (6.4-8.3); Troponin I Only 0.033 NG/ML (0.00-0.045)
[2017-08-07 11:02] LABS: Hypochromasia 1+
[2017-08-07 11:28] LABS: Apearance,Urine CLEAR (Clear); Bilirubin,Urine Negative (Negative); Blood, Urine Negative (Negative); Glucose,Urine (UA) Negative (Negative); Hyaline Casts,Urine 8 /LPF (0-3); Ketones,Urine Negative (Negative); Mucus,Urine Occasional /LPF (Occasional); Nitrite,Urine Negative (Negative); Protein,Urine Negative; RBC,Urine 1 /HPF (0-4); Urine Color Straw (Yellow); Urine Specific Gravity 1.008 (1.001-1.035); Urine Urobilinogen < 2.0 EU/DL (0.2-1.0); WBC,Urine <1 /HPF (0-6)
[2017-08-07] MEDS ORDERED: TERBUTALINE 1 MG/1 ML VIAL SUBCUT ONE (11:48)
[2017-08-07] MEDS: TERBUTALINE 1 MG/1 ML VIAL SUBCUT SCH ×2 (11:53→12:24)
[2017-08-07] MEDS ORDERED: guaiFENesin/DM ER 600-30 MG TABLET PO PRN (13:15)
[2017-08-07] MEDS ORDERED: ONDANSETRON 4 MG/2 ML VIAL IV PRN (13:15)
[2017-08-07] MEDS ORDERED: diphenhydrAMINE CAP 25 MG CAPSULE PO PRN (13:15)
[2017-08-07] MEDS ORDERED: MORPHINE 4 MG/1 ML VIAL IV PRN (13:15)
[2017-08-07] MEDS ORDERED: ACETAMINOPHEN 325 MG TABLET PO PRN (13:15)
[2017-08-07 13:23] LABS: ABG Base Excess 0.9 MMOL/L (-2.5-2.5); ABG HCO3 25.2 MMOL/L (20-26); ABG Oxygen Saturation 98.9 % (95-100); ABG PCO2 50.1 MM HG (35-48); ABG PH 7.347 (7.35-7.45); ABG TCO2 23.9 MMOL/L (23-27)
[2017-08-07] MEDS ORDERED: ALBUTEROL 2.5 MG/3 ML NEB RESP TX PRN (13:26)
[2017-08-07] MEDS ORDERED: DORZOLAMIDE 2% OPH SOLN 10 ML BOTTLE BOTH EYES SCH (13:30)
[2017-08-07] MEDS ORDERED: SODIUM CHLORIDE 0.9% 1,000 ML IV SCH (13:30)
[2017-08-07 13:33] LABS: Barbiturates Screen,Urine Negative (Negative); Benzodiazepines Screen,Urine Negative (Negative); Cannabinoid Screen,Urine Negative (Negative); Opiate Screen,Urine Negative (Negative); Phencyclidine Screen,Urine Negative (Negative)
[2017-08-07] MEDS: BRIMONIDINE 0.15% OPH SOLN 1 DROP/DROPS BOTTLE BOTH EYES SCH ×2 (14:47→20:57)
[2017-08-07] MEDS: PANTOPRAZOLE 40 MG TABLET PO SCH ×2 (14:48→15:44)
[2017-08-07] MEDS: BUDESONIDE/FORMOTEROL 160-4.5 INHALER 6 GM INH SCH ×2 (14:48→20:59)
[2017-08-07] MEDS: ENOXAPARIN 40 MG/0.4 ML SYRINGE SUBCUT SCH (15:44)
[2017-08-07] MEDS: FUROSEMIDE 40 MG TABLET PO SCH ×2 (15:44→15:45)
[2017-08-07] MEDS: PIPERACILLIN/TAZOBACTAM 3,375 MG in SODIUM CHLORIDE 0.9% 100 ML IV SCH ×2 (16:00→23:06)
[2017-08-07] MEDS: POTASSIUM CHLORIDE 10 MEQ TABLET PO SCH (17:17)
[2017-08-07] MEDS ORDERED: methylPREDNISolone SOD SUC 40 MG/1 ML VIAL IV SCH (18:00)
[2017-08-07] MEDS: ALBUTEROL/IPRATROPIUM 3 ML NEB RESP TX SCH (19:51)
[2017-08-07] MEDS: methylPREDNISolone SOD SUC 40 MG/1 ML VIAL IV SCH (20:54)
[2017-08-07] MEDS: MONTELUKAST 10 MG TABLET PO SCH (20:58)
[2017-08-07] MEDS: DOXAZOSIN 4 MG TABLET PO SCH (20:58)
[2017-08-07] MEDS: BIMATOPROST 0.01% OPH SOLN 2.5 ML BOTTLE BOTH EYES SCH (20:59)
[2017-08-08] MEDS: ALBUTEROL/IPRATROPIUM 3 ML NEB RESP TX SCH ×4 (01:09→19:39)
[2017-08-08] MEDS: methylPREDNISolone SOD SUC 40 MG/1 ML VIAL IV SCH ×3 (04:20→21:43)
[2017-08-08 05:21] LABS: Hematocrit 38.1 VOL% (42.0-52.0); Immature Granulocytes % 0.6 %; Immature Granulocytes Absolute 0.02 #; Lymphocytes # 0.7 10*3/uL (1.4-4.0); Lymphocytes % 20.2 % (21.2-54.2); Mean Corpuscular HGB Conc 34.6 GM/DL (32-36); Mean Corpuscular Hemoglobin 31 PG (27-34); Mean Corpuscular Volume 89.4 FL (87-102); Mean Platelet Volume 10.3 FL (9.6-12.0); Monocytes # 0.2 10*3/uL (0.11-0.8); Neutrophils # 2.4 10*3/uL (1.4-7.4); Neutrophils % 73.2 % (38.7-73.9); Platelet Count 142 T/CUMM (130-400); Red Blood Count 4.26 MC/CUMM (3.8-5.5); Red Cell Distribution Width 14.1 % (9.3-17.3); White Blood Count 3.3 T/CUMM (4-12)
[2017-08-08 05:23] LABS: Hemoglobin 13.2 GM/DL (14.0-18.0)
[2017-08-08 05:25] LABS: Calcium 8.8 MG/DL (8.5-10.1); Osmolality,Calculated 279.7 MOS/KG (273-304); Potassium 4.2 MMOL/L (3.5-5.1)
[2017-08-08] MEDS: PIPERACILLIN/TAZOBACTAM 3,375 MG in SODIUM CHLORIDE 0.9% 100 ML IV SCH (06:40)
[2017-08-08] MEDS ORDERED: NON-FORMULARY MEDICATION (Umeclidinium Brm/Vilanterol Tr [Anoro Ellipta] 1 PUFF) INH SCH (09:00)
[2017-08-08] MEDS: POTASSIUM CHLORIDE 10 MEQ TABLET PO SCH ×2 (09:25→16:58)
[2017-08-08] MEDS: LOSARTAN 25 MG TABLET PO SCH (09:25)
[2017-08-08] MEDS: PANTOPRAZOLE 40 MG TABLET PO SCH (09:25)
[2017-08-08] MEDS: FUROSEMIDE 40 MG TABLET PO SCH ×2 (09:25→16:58)
[2017-08-08] MEDS: BRIMONIDINE 0.15% OPH SOLN 1 DROP/DROPS BOTTLE BOTH EYES SCH ×2 (09:26→21:43)
[2017-08-08] MEDS: BUDESONIDE/FORMOTEROL 160-4.5 INHALER 6 GM INH SCH ×2 (09:29→21:42)
[2017-08-08] MEDS: METOPROLOL SUCCINATE XL 25 MG TABLET PO SCH (09:46)
[2017-08-08] MEDS: ENOXAPARIN 40 MG/0.4 ML SYRINGE SUBCUT SCH (16:58)
[2017-08-08] MEDS: MONTELUKAST 10 MG TABLET PO SCH (21:42)
[2017-08-08] MEDS: DOXAZOSIN 4 MG TABLET PO SCH (21:42)
[2017-08-08] MEDS: BIMATOPROST 0.01% OPH SOLN 2.5 ML BOTTLE BOTH EYES SCH (21:43)
[2017-08-09] MEDS: ALBUTEROL/IPRATROPIUM 3 ML NEB RESP TX SCH ×4 (00:22→19:08)
[2017-08-09] MEDS: methylPREDNISolone SOD SUC 40 MG/1 ML VIAL IV SCH ×2 (04:18→23:14)
[2017-08-09 05:45] LABS: Osmolality,Calculated 281.7 MOS/KG (273-304); Potassium 4.6 MMOL/L (3.5-5.1)
[2017-08-09] MEDS: LEVOFLOXACIN 500 MG TABLET PO SCH (10:32)
[2017-08-09] MEDS: METOPROLOL SUCCINATE XL 25 MG TABLET PO SCH (10:32)
[2017-08-09] MEDS: FUROSEMIDE 40 MG TABLET PO SCH ×2 (10:32→16:45)
[2017-08-09] MEDS: POTASSIUM CHLORIDE 10 MEQ TABLET PO SCH ×2 (10:32→21:58)
[2017-08-09] MEDS: DOCUSATE SODIUM 100 MG CAPSULE PO PRN (10:33)
[2017-08-09] MEDS: PANTOPRAZOLE 40 MG TABLET PO SCH (10:33)
[2017-08-09] MEDS: LOSARTAN 25 MG TABLET PO SCH (10:33)
[2017-08-09] MEDS: BUDESONIDE/FORMOTEROL 160-4.5 INHALER 6 GM INH SCH ×2 (10:34→21:27)
[2017-08-09] MEDS: BRIMONIDINE 0.15% OPH SOLN 1 DROP/DROPS BOTTLE BOTH EYES SCH ×2 (10:34→21:27)
[2017-08-09] MEDS: predniSONE 10 MG TABLET PO SCH ×2 (12:42→21:25)
[2017-08-09] MEDS ORDERED: BENZONATATE 100 MG CAPSULE PO PRN (14:48)
[2017-08-09] MEDS: ENOXAPARIN 40 MG/0.4 ML SYRINGE SUBCUT SCH (16:45)
[2017-08-09] MEDS: DOXAZOSIN 4 MG TABLET PO SCH (21:25)
[2017-08-09] MEDS: MONTELUKAST 10 MG TABLET PO SCH (21:25)
[2017-08-09] MEDS: BIMATOPROST 0.01% OPH SOLN 2.5 ML BOTTLE BOTH EYES SCH (21:26)
[2017-08-10] MEDS: ALBUTEROL/IPRATROPIUM 3 ML NEB RESP TX SCH ×2 (01:40→07:48)
[2017-08-10 08:24] VITALS: BP 133/57
[2017-08-10] MEDS: DOCUSATE SODIUM 100 MG CAPSULE PO PRN (09:42)
[2017-08-10] MEDS: METOPROLOL SUCCINATE XL 25 MG TABLET PO SCH (09:42)
[2017-08-10] MEDS: LEVOFLOXACIN 500 MG TABLET PO SCH (09:42)
[2017-08-10] MEDS: predniSONE 10 MG TABLET PO SCH (09:42)
[2017-08-10] MEDS: LOSARTAN 25 MG TABLET PO SCH (09:42)
[2017-08-10] MEDS: PANTOPRAZOLE 40 MG TABLET PO SCH (09:43)
[2017-08-10] MEDS: POTASSIUM CHLORIDE 10 MEQ TABLET PO SCH (09:43)
[2017-08-10] MEDS: FUROSEMIDE 40 MG TABLET PO SCH (09:43)
[2017-08-10] MEDS: BUDESONIDE/FORMOTEROL 160-4.5 INHALER 6 GM INH SCH (09:44)
[2017-08-10] MEDS: BRIMONIDINE 0.15% OPH SOLN 1 DROP/DROPS BOTTLE BOTH EYES SCH (09:44)
== END 2017-08-10 10:04 | disposition home or self-care (01) | DRG 191 ==
LOC: N.ED 09:42 → SUATTDRO 13:16 → N.EDINP 13:16 → N.TELES 14:38
PROVIDERS: ADMIT Internal Medicine; ATTEND Internal Medicine Cardiovascular Disease

== ENCOUNTER 2017-09-24 13:51 | Inpatient (IN) ==
[2017-09-24] MEDS ORDERED: methylPREDNISolone SOD SUC 125 MG/2 ML VIAL IV STA (14:31)
[2017-09-24] MEDS ORDERED: FUROSEMIDE 100 MG/10 ML VIAL IV STA (14:31)
[2017-09-24] MEDS ORDERED: ALBUTEROL/IPRATROPIUM 3 ML NEB RESP TX STA ×2 (14:31→15:45)
[2017-09-24 15:10] LABS: Basophils % 0.5 % (0.0-0.8); Eosinophils # 0.3 10*3/uL (0.0-0.87); Eosinophils % 4.5 % (0.00-10.9); Hematocrit 42.1 VOL% (42.0-52.0); Hemoglobin 14.3 GM/DL (14.0-18.0); Immature Granulocytes % 0.3 %; Immature Granulocytes Absolute 0.02 #; Lymphocytes # 1.1 10*3/uL (1.4-4.0); Lymphocytes % 14.6 % (21.2-54.2); Mean Corpuscular Hemoglobin 31 PG (27-34); Mean Corpuscular Volume 90.3 FL (87-102); Mean Platelet Volume 9.9 FL (9.6-12.0); Monocytes # 0.7 10*3/uL (0.11-0.8); Monocytes % 8.5 % (1.7-12.7); Neutrophils # 5.5 10*3/uL (1.4-7.4); Neutrophils % 71.6 % (38.7-73.9); Platelet Count 221 T/CUMM (130-400); Red Blood Count 4.66 MC/CUMM (3.8-5.5); Red Cell Distribution Width 13.7 % (9.3-17.3); White Blood Count 7.6 T/CUMM (4-12)
[2017-09-24 15:30] LABS: Albumin 3.6 G/DL (3.4-5.0); Bilirubin,Total 0.8 MG/DL (0.2-1.0); Osmolality,Calculated 283.4 MOS/KG (273-304); Potassium 4.1 MMOL/L (3.5-5.1); Total Protein 7.8 G/DL (6.4-8.3)
[2017-09-24 15:31] LABS: Troponin I Only 0.046 NG/ML (0.00-0.045)
[2017-09-24] MEDS ORDERED: ACETAMINOPHEN 325 MG TABLET PO PRN (16:28)
[2017-09-24] MEDS ORDERED: ALBUTEROL 2.5 MG/3 ML NEB RESP TX PRN (16:28)
[2017-09-24] MEDS ORDERED: ONDANSETRON 4 MG/2 ML VIAL IV PRN (16:28)
[2017-09-24] MEDS ORDERED: BENZONATATE 100 MG CAPSULE PO PRN (16:34)
[2017-09-24] MEDS ORDERED: FUROSEMIDE 40 MG/4 ML VIAL IV ONE (16:34)
[2017-09-24 17:19] LABS: ABG Base Excess 3.3 MMOL/L (-2.5-2.5); ABG HCO3 30.1 MMOL/L (20-26); ABG Oxygen Saturation 87.4 % (95-100); ABG PCO2 54.8 MM HG (35-48); ABG PH 7.358 (7.35-7.45); ABG PO2 57.7 MM HG (80-95); ABG TCO2 31.8 MMOL/L (23-27)
[2017-09-24] MEDS: LEVOFLOXACIN INJ 500 MG in PREMIX 1 EACH IV SCH (18:40)
[2017-09-24] MEDS: POTASSIUM CHLORIDE 10 MEQ TABLET PO SCH (18:52)
[2017-09-24] MEDS: ALBUTEROL/IPRATROPIUM 3 ML NEB RESP TX SCH (19:02)
[2017-09-24 20:03] LABS: Apearance,Urine CLEAR (Clear); Bilirubin,Urine Negative (Negative); Blood, Urine Small mg/dL (Negative); Glucose,Urine (UA) Negative (Negative); Hyaline Casts,Urine 15 /LPF (0-3); Ketones,Urine Negative (Negative); Mucus,Urine Occasional /LPF (Occasional); Nitrite,Urine Negative (Negative); Protein,Urine Negative; RBC,Urine 1 /HPF (0-4); Squamous Epithelial Cell,Urine Occasional /HPF (0-10); Urine Color Yellow (Yellow); Urine Specific Gravity 1.012 (1.001-1.035); Urine Urobilinogen < 2.0 EU/DL (0.2-1.0); WBC,Urine 1 /HPF (0-6)
[2017-09-24] MEDS: DOXAZOSIN 4 MG TABLET PO SCH (20:10)
[2017-09-24] MEDS: methylPREDNISolone SOD SUC 40 MG/1 ML VIAL IV SCH (20:10)
[2017-09-24] MEDS: MONTELUKAST 10 MG TABLET PO SCH (20:11)
[2017-09-24] MEDS: FLUTICASONE/SALMETEROL 500-50 DISKUS 14 DOSE INH SCH (20:11)
[2017-09-24] MEDS: ENOXAPARIN 30 MG/0.3 ML SYRINGE SUBCUT SCH (20:11)
[2017-09-24] MEDS: BIMATOPROST 0.01% OPH SOLN 2.5 ML BOTTLE BOTH EYES SCH (20:23)
[2017-09-24] MEDS: BRIMONIDINE 0.15% OPH SOLN 1 DROP/DROPS BOTTLE BOTH EYES SCH (20:23)
[2017-09-24] MEDS ORDERED: FUROSEMIDE 40 MG/4 ML VIAL IV SCH (21:00)
[2017-09-24] MEDS ORDERED: DORZOLAMIDE 2% OPH SOLN 10 ML BOTTLE BOTH EYES SCH (21:00)
[2017-09-24] MEDS ORDERED: ETOMIDATE 20 MG/10 ML VIAL IV ONE ×2 (22:49→22:57)
[2017-09-24] MEDS ORDERED: VECURONIUM 10 MG VIAL IV ONE (22:49)
[2017-09-24] MEDS ORDERED: PROPOFOL 1,000 MG/100 ML BOTTLE IV ONE (23:02)
[2017-09-24] MEDS ORDERED: PROPOFOL 1,000 MG/100 ML BOTTLE IV SCH (23:30)
[2017-09-24 23:38] LABS: ABG Base Excess 2.1 MMOL/L (-2.5-2.5); ABG Oxygen Saturation 89.1 % (95-100); ABG PCO2 53.6 MM HG (35-48); ABG PH 7.345 (7.35-7.45); ABG PO2 59.9 MM HG (80-95); ABG TCO2 25.3 MMOL/L (23-27)
[2017-09-24 23:51] LABS: ABG Base Excess 1.8 MMOL/L (-2.5-2.5); ABG Oxygen Saturation 99.7 % (95-100); ABG PCO2 67.6 MM HG (35-48); ABG PH 7.273 (7.35-7.45); ABG TCO2 27.4 MMOL/L (23-27)
[2017-09-25] MEDS ORDERED: MIDAZOLAM 100 MG in SODIUM CHLORIDE 0.9% 80 ML IV PRN (01:21)
[2017-09-25] MEDS: ALBUTEROL/IPRATROPIUM 3 ML NEB RESP TX SCH ×4 (01:50→19:48)
[2017-09-25] MEDS: methylPREDNISolone SOD SUC 40 MG/1 ML VIAL IV SCH ×4 (02:44→20:32)
[2017-09-25 04:47] LABS: ABG Base Excess 3.6 MMOL/L (-2.5-2.5); ABG HCO3 30.8 MMOL/L (20-26); ABG Oxygen Saturation 99.1 % (95-100); ABG PCO2 57.8 MM HG (35-48); ABG PH 7.345 (7.35-7.45); ABG TCO2 32.6 MMOL/L (23-27); Allen Test Positive; Pt O2 Delivery Device Ventilator
[2017-09-25 05:10] LABS: Hematocrit 42.2 VOL% (42.0-52.0); Hemoglobin 14.3 GM/DL (14.0-18.0); Immature Granulocytes % 0.3 %; Immature Granulocytes Absolute 0.02 #; Lymphocytes % 14.2 % (21.2-54.2); Mean Corpuscular HGB Conc 33.9 GM/DL (32-36); Mean Corpuscular Hemoglobin 31 PG (27-34); Monocytes # 0.5 10*3/uL (0.11-0.8); Monocytes % 8.1 % (1.7-12.7); Neutrophils # 5.2 10*3/uL (1.4-7.4); Neutrophils % 77.4 % (38.7-73.9); Platelet Count 209 T/CUMM (130-400); Red Blood Count 4.69 MC/CUMM (3.8-5.5); Red Cell Distribution Width 13.9 % (9.3-17.3); White Blood Count 6.7 T/CUMM (4-12)
[2017-09-25] MEDS ORDERED: SODIUM CHLORIDE 0.9% 250 ML IV ONE (05:19)
[2017-09-25] MEDS ORDERED: fentaNYL INJ 1,250 MCG in SODIUM CHLORIDE 0.9% 225 ML IV PRN (05:30)
[2017-09-25 06:04] LABS: Albumin 3.7 G/DL (3.4-5.0); Bilirubin,Total 0.8 MG/DL (0.2-1.0); Osmolality,Calculated 286.3 MOS/KG (273-304); Potassium 4.7 MMOL/L (3.5-5.1); Total Protein 7.4 G/DL (6.4-8.3)
[2017-09-25 06:08] LABS: Calcium Oxalate Crystals,Urine Occasional /HPF (Few)
[2017-09-25] MEDS: fentaNYL INJ 1,250 MCG in SODIUM CHLORIDE 0.9% 225 ML IV SCH ×2 (06:08→23:29)
[2017-09-25] MEDS ORDERED: LIDOCAINE 2% 20 ML VIAL RESP TX ONE (07:07)
[2017-09-25] MEDS ORDERED: MIDAZOLAM 2 MG/2 ML VIAL IV ONE (07:07)
[2017-09-25] MEDS ORDERED: LIDOCAINE 1% 20 ML VIAL MISC INJ ONE (07:07)
[2017-09-25] MEDS ORDERED: SODIUM CHLORIDE 0.9% 500 ML IV ONE (08:49)
[2017-09-25] MEDS ORDERED: METOPROLOL SUCCINATE XL 25 MG TABLET PO SCH (09:00)
[2017-09-25] MEDS ORDERED: FUROSEMIDE 40 MG/4 ML VIAL IV SCH ×2 (09:00→09:30)
[2017-09-25] MEDS: BRIMONIDINE 0.15% OPH SOLN 1 DROP/DROPS BOTTLE BOTH EYES SCH ×2 (09:30→20:32)
[2017-09-25] MEDS: POTASSIUM CHLORIDE 10 MEQ TABLET PO SCH ×2 (10:17→18:26)
[2017-09-25] MEDS: CEFEPIME 1,000 MG in SYRINGE 1 EACH IV SCH ×2 (10:17→20:31)
[2017-09-25] MEDS: PANTOPRAZOLE 40 MG TABLET PO SCH (10:19)
[2017-09-25] MEDS: LOSARTAN 25 MG TABLET PO SCH (10:20)
[2017-09-25] MEDS: FLUTICASONE/SALMETEROL 500-50 DISKUS 14 DOSE INH SCH ×2 (10:32→20:31)
[2017-09-25] MEDS: SODIUM CHLORIDE 0.45% 1,000 ML IV SCH ×2 (11:54→20:11)
[2017-09-25] MEDS ORDERED: GLUCAGON 1 MG VIAL IM PRN (13:44)
[2017-09-25] MEDS ORDERED: DEXTROSE 50% 25 GM/50 ML VIAL IV PRN (13:44)
[2017-09-25] MEDS: INSULIN REGULAR 100 UNIT/ML SUBCUT SCH ×2 (18:23→23:47)
[2017-09-25] MEDS: LEVOFLOXACIN INJ 500 MG in PREMIX 1 EACH IV SCH (18:26)
[2017-09-25] MEDS: MIDAZOLAM 100 MG in SODIUM CHLORIDE 0.9% 80 ML IV SCH (19:00)
[2017-09-25] MEDS: DORNASE ALFA 2.5 MG/2.5 ML VIAL RESP TX SCH (19:48)
[2017-09-25] MEDS: BIMATOPROST 0.01% OPH SOLN 2.5 ML BOTTLE BOTH EYES SCH (20:32)
[2017-09-25] MEDS: ENOXAPARIN 30 MG/0.3 ML SYRINGE SUBCUT SCH (20:32)
[2017-09-25] MEDS: DOXAZOSIN 4 MG TABLET PO SCH (20:32)
[2017-09-25] MEDS: MONTELUKAST 10 MG TABLET PO SCH (20:32)
[2017-09-26] MEDS: ALBUTEROL/IPRATROPIUM 3 ML NEB RESP TX SCH ×5 (00:07→23:48)
[2017-09-26] MEDS: methylPREDNISolone SOD SUC 40 MG/1 ML VIAL IV SCH ×4 (02:55→21:22)
[2017-09-26 03:32] LABS: ABG Base Excess 4.9 MMOL/L (-2.5-2.5); ABG HCO3 28.9 MMOL/L (20-26); ABG Oxygen Saturation 99.3 % (95-100); ABG PCO2 50.8 MM HG (35-48); ABG PH 7.394 (7.35-7.45); ABG TCO2 27.5 MMOL/L (23-27)
[2017-09-26] MEDS: MIDAZOLAM 100 MG in SODIUM CHLORIDE 0.9% 80 ML IV SCH ×2 (04:09→21:05)
[2017-09-26] MEDS: SODIUM CHLORIDE 0.45% 1,000 ML IV SCH (04:10)
[2017-09-26 05:10] LABS: Hematocrit 36.4 VOL% (42.0-52.0); Hemoglobin 12.3 GM/DL (14.0-18.0); Immature Granulocytes % 0.4 %; Immature Granulocytes Absolute 0.02 #; Lymphocytes # 0.5 10*3/uL (1.4-4.0); Lymphocytes % 9.3 % (21.2-54.2); Mean Corpuscular HGB Conc 33.8 GM/DL (32-36); Mean Corpuscular Hemoglobin 30 PG (27-34); Mean Corpuscular Volume 89.9 FL (87-102); Mean Platelet Volume 10.1 FL (9.6-12.0); Monocytes # 0.4 10*3/uL (0.11-0.8); Neutrophils # 4.3 10*3/uL (1.4-7.4); Neutrophils % 83.3 % (38.7-73.9); Platelet Count 185 T/CUMM (130-400); Red Blood Count 4.05 MC/CUMM (3.8-5.5); Red Cell Distribution Width 13.7 % (9.3-17.3); White Blood Count 5.1 T/CUMM (4-12)
[2017-09-26 05:42] LABS: Prealbumin 18.6 MG/DL (20-40)
[2017-09-26] MEDS: INSULIN REGULAR 100 UNIT/ML SUBCUT SCH ×3 (05:51→18:17)
[2017-09-26 05:52] LABS: Calcium 8.6 MG/DL (8.5-10.1); Osmolality,Calculated 289.3 MOS/KG (273-304); Potassium 4.5 MMOL/L (3.5-5.1)
[2017-09-26] MEDS: fentaNYL INJ 1,250 MCG in SODIUM CHLORIDE 0.9% 225 ML IV SCH (06:02)
[2017-09-26] MEDS: DORNASE ALFA 2.5 MG/2.5 ML VIAL RESP TX SCH ×2 (07:59→19:55)
[2017-09-26] MEDS: CEFEPIME 1,000 MG in SYRINGE 1 EACH IV SCH ×2 (08:13→21:19)
[2017-09-26] MEDS: POTASSIUM CHLORIDE 10 MEQ TABLET PO SCH ×2 (08:15→18:16)
[2017-09-26] MEDS: PANTOPRAZOLE 40 MG TABLET PO SCH (08:29)
[2017-09-26] MEDS: BRIMONIDINE 0.15% OPH SOLN 1 DROP/DROPS BOTTLE BOTH EYES SCH ×2 (08:29→21:20)
[2017-09-26] MEDS: NEBIVOLOL 5 MG TABLET PO SCH (08:29)
[2017-09-26] MEDS: FLUTICASONE/SALMETEROL 500-50 DISKUS 14 DOSE INH SCH ×2 (08:29→21:05)
[2017-09-26] MEDS: LOSARTAN 25 MG TABLET PO SCH (08:29)
[2017-09-26 08:55] LABS: ABG Base Excess 6.9 MMOL/L (-2.5-2.5); ABG HCO3 31.4 MMOL/L (20-26); ABG Oxygen Saturation 97.5 % (95-100); ABG PCO2 44.4 MM HG (35-48); ABG PH 7.468 (7.35-7.45); ABG PO2 98.7 MM HG (80-95); ABG TCO2 32.8 MMOL/L (23-27)
[2017-09-26] MEDS ORDERED: FUROSEMIDE 40 MG TABLET PO SCH (09:00)
[2017-09-26] MEDS: LEVOFLOXACIN INJ 500 MG in PREMIX 1 EACH IV SCH (18:16)
[2017-09-26] MEDS: ENOXAPARIN 40 MG/0.4 ML SYRINGE SUBCUT SCH (21:19)
[2017-09-26] MEDS: DOXAZOSIN 4 MG TABLET PO SCH (21:19)
[2017-09-26] MEDS: MONTELUKAST 10 MG TABLET PO SCH (21:19)
[2017-09-26] MEDS: BIMATOPROST 0.01% OPH SOLN 2.5 ML BOTTLE BOTH EYES SCH (21:20)
[2017-09-27] MEDS: INSULIN REGULAR 100 UNIT/ML SUBCUT SCH ×5 (01:23→23:24)
[2017-09-27 03:32] LABS: ABG Base Excess 4.2 MMOL/L (-2.5-2.5); ABG Oxygen Saturation 98.3 % (95-100); ABG PCO2 39.3 MM HG (35-48); ABG PH 7.471 (7.35-7.45); ABG PO2 121.4 MM HG (80-95); ABG TCO2 29.2 MMOL/L (23-27); Allen Test Positive; Pt O2 Delivery Device Ventilator
[2017-09-27] MEDS: methylPREDNISolone SOD SUC 40 MG/1 ML VIAL IV SCH ×4 (03:47→20:31)
[2017-09-27] MEDS: SODIUM CHLORIDE 0.45% 1,000 ML IV SCH ×3 (04:46→23:24)
[2017-09-27 05:17] LABS: Hematocrit 40.2 VOL% (42.0-52.0); Immature Granulocytes % 0.3 %; Immature Granulocytes Absolute 0.03 #; Lymphocytes # 0.5 10*3/uL (1.4-4.0); Lymphocytes % 5.7 % (21.2-54.2); Mean Corpuscular HGB Conc 32.3 GM/DL (32-36); Mean Corpuscular Hemoglobin 30 PG (27-34); Mean Corpuscular Volume 93.7 FL (87-102); Mean Platelet Volume 9.8 FL (9.6-12.0); Monocytes # 0.6 10*3/uL (0.11-0.8); Monocytes % 6.7 % (1.7-12.7); Neutrophils # 8.3 10*3/uL (1.4-7.4); Neutrophils % 87.3 % (38.7-73.9); Platelet Count 181 T/CUMM (130-400); Red Blood Count 4.29 MC/CUMM (3.8-5.5); Red Cell Distribution Width 13.9 % (9.3-17.3); White Blood Count 9.5 T/CUMM (4-12)
[2017-09-27 05:56] LABS: Calcium 8.5 MG/DL (8.5-10.1); Osmolality,Calculated 281.8 MOS/KG (273-304); Potassium 4.4 MMOL/L (3.5-5.1)
[2017-09-27] MEDS: fentaNYL INJ 1,250 MCG in SODIUM CHLORIDE 0.9% 225 ML IV SCH (06:20)
[2017-09-27] MEDS: ALBUTEROL/IPRATROPIUM 3 ML NEB RESP TX SCH ×3 (07:19→19:53)
[2017-09-27 07:22] LABS: ABG Base Excess 3.2 MMOL/L (-2.5-2.5); ABG HCO3 27.2 MMOL/L (20-26); ABG Oxygen Saturation 97.6 % (95-100); ABG PCO2 40.7 MM HG (35-48); ABG PH 7.439 (7.35-7.45); ABG PO2 92.3 MM HG (80-95); Allen Test Positive; Pt O2 Delivery Device Ventilator
[2017-09-27] MEDS: DORNASE ALFA 2.5 MG/2.5 ML VIAL RESP TX SCH ×2 (07:27→19:53)
[2017-09-27 08:27] LABS: Allen Test Positive
[2017-09-27 08:28] LABS: ABG Base Excess 3.7 MMOL/L (-2.5-2.5); ABG HCO3 27.6 MMOL/L (20-26); ABG Oxygen Saturation 92.3 % (95-100); ABG PCO2 39.8 MM HG (35-48); ABG PH 7.453 (7.35-7.45); ABG PO2 62.5 MM HG (80-95); ABG TCO2 24.3 MMOL/L (23-27)
[2017-09-27] MEDS: CEFEPIME 1,000 MG in SYRINGE 1 EACH IV SCH ×2 (09:13→20:32)
[2017-09-27] MEDS: PANTOPRAZOLE 40 MG TABLET PO SCH (09:13)
[2017-09-27] MEDS: LOSARTAN 25 MG TABLET PO SCH (09:13)
[2017-09-27] MEDS: VANCOMYCIN INJ 750 MG in SODIUM CHLORIDE 0.9% 250 ML IV SCH ×2 (09:13→20:57)
[2017-09-27] MEDS: BRIMONIDINE 0.15% OPH SOLN 1 DROP/DROPS BOTTLE BOTH EYES SCH ×2 (09:14→20:59)
[2017-09-27] MEDS: NEBIVOLOL 5 MG TABLET PO SCH (09:14)
[2017-09-27] MEDS: POTASSIUM CHLORIDE 10 MEQ TABLET PO SCH ×2 (09:14→17:23)
[2017-09-27] MEDS: FLUTICASONE/SALMETEROL 500-50 DISKUS 14 DOSE INH SCH ×2 (09:35→20:59)
[2017-09-27] MEDS: LEVOFLOXACIN INJ 500 MG in PREMIX 1 EACH IV SCH (17:23)
[2017-09-27] MEDS: DOXAZOSIN 4 MG TABLET PO SCH (20:31)
[2017-09-27] MEDS: ENOXAPARIN 40 MG/0.4 ML SYRINGE SUBCUT SCH (20:31)
[2017-09-27] MEDS: MONTELUKAST 10 MG TABLET PO SCH (20:33)
[2017-09-27] MEDS: BIMATOPROST 0.01% OPH SOLN 2.5 ML BOTTLE BOTH EYES SCH (20:59)
[2017-09-28] MEDS: ALBUTEROL/IPRATROPIUM 3 ML NEB RESP TX SCH ×4 (00:26→20:29)
[2017-09-28] MEDS: methylPREDNISolone SOD SUC 40 MG/1 ML VIAL IV SCH ×4 (03:39→21:00)
[2017-09-28] MEDS: INSULIN REGULAR 100 UNIT/ML SUBCUT SCH ×3 (08:00→17:02)
[2017-09-28] MEDS: PANTOPRAZOLE 40 MG TABLET PO SCH (08:00)
[2017-09-28] MEDS: POTASSIUM CHLORIDE 10 MEQ TABLET PO SCH ×2 (08:00→16:58)
[2017-09-28] MEDS: FLUTICASONE/SALMETEROL 500-50 DISKUS 14 DOSE INH SCH ×2 (08:01→21:08)
[2017-09-28] MEDS: CEFEPIME 1,000 MG in SYRINGE 1 EACH IV SCH ×2 (08:01→20:53)
[2017-09-28] MEDS: NEBIVOLOL 5 MG TABLET PO SCH (08:01)
[2017-09-28] MEDS: FUROSEMIDE 40 MG TABLET PO SCH ×2 (08:01→15:21)
[2017-09-28] MEDS: LOSARTAN 25 MG TABLET PO SCH (08:01)
[2017-09-28] MEDS: BRIMONIDINE 0.15% OPH SOLN 1 DROP/DROPS BOTTLE BOTH EYES SCH ×2 (08:01→21:07)
[2017-09-28] MEDS: Umeclidinium Brm/Vilanterol Tr [Anoro Ellipta] INH SCH (09:12)
[2017-09-28] MEDS: VANCOMYCIN INJ 750 MG in SODIUM CHLORIDE 0.9% 250 ML IV SCH ×2 (10:03→22:12)
[2017-09-28] MEDS: LEVOFLOXACIN INJ 500 MG in PREMIX 1 EACH IV SCH (16:59)
[2017-09-28] MEDS ORDERED: DEXTROSE 50% 25 GM/50 ML VIAL IV PRN (18:59)
[2017-09-28] MEDS ORDERED: GLUCAGON 1 MG VIAL IM PRN (18:59)
[2017-09-28] MEDS ORDERED: DORZOLAMIDE 2% OPH SOLN 10 ML BOTTLE BOTH EYES SCH (21:00)
[2017-09-28] MEDS: ENOXAPARIN 40 MG/0.4 ML SYRINGE SUBCUT SCH (21:03)
[2017-09-28] MEDS: BIMATOPROST 0.01% OPH SOLN 2.5 ML BOTTLE BOTH EYES SCH (21:05)
[2017-09-28] MEDS: MONTELUKAST 10 MG TABLET PO SCH (21:06)
[2017-09-28] MEDS: DOXAZOSIN 4 MG TABLET PO SCH (21:06)
[2017-09-29] MEDS: INSULIN REGULAR 100 UNIT/ML SUBCUT SCH ×4 (00:46→17:16)
[2017-09-29] MEDS: ALBUTEROL/IPRATROPIUM 3 ML NEB RESP TX SCH ×4 (03:00→19:38)
[2017-09-29] MEDS: methylPREDNISolone SOD SUC 40 MG/1 ML VIAL IV SCH ×2 (03:43→15:24)
[2017-09-29 05:46] LABS: Hematocrit 36.6 VOL% (42.0-52.0); Hemoglobin 12.3 GM/DL (14.0-18.0); Immature Granulocytes % 0.6 %; Immature Granulocytes Absolute 0.03 #; Lymphocytes # 0.4 10*3/uL (1.4-4.0); Lymphocytes % 7.5 % (21.2-54.2); Mean Corpuscular HGB Conc 33.6 GM/DL (32-36); Mean Corpuscular Hemoglobin 30 PG (27-34); Mean Corpuscular Volume 89.1 FL (87-102); Mean Platelet Volume 9.8 FL (9.6-12.0); Monocytes # 0.3 10*3/uL (0.11-0.8); Monocytes % 6.2 % (1.7-12.7); Neutrophils # 4.4 10*3/uL (1.4-7.4); Neutrophils % 85.7 % (38.7-73.9); Platelet Count 175 T/CUMM (130-400); Red Blood Count 4.11 MC/CUMM (3.8-5.5); Red Cell Distribution Width 13.3 % (9.3-17.3); White Blood Count 5.2 T/CUMM (4-12)
[2017-09-29 06:19] LABS: Calcium 8.4 MG/DL (8.5-10.1); Osmolality,Calculated 285.3 MOS/KG (273-304); Potassium 3.7 MMOL/L (3.5-5.1)
[2017-09-29] MEDS: NEBIVOLOL 5 MG TABLET PO SCH (08:55)
[2017-09-29] MEDS: PANTOPRAZOLE 40 MG TABLET PO SCH (08:55)
[2017-09-29] MEDS: FUROSEMIDE 40 MG TABLET PO SCH ×2 (08:55→15:25)
[2017-09-29] MEDS: POTASSIUM CHLORIDE 10 MEQ TABLET PO SCH ×2 (08:55→16:20)
[2017-09-29] MEDS: FLUTICASONE/SALMETEROL 500-50 DISKUS 14 DOSE INH SCH ×2 (08:56→21:03)
[2017-09-29] MEDS: LOSARTAN 25 MG TABLET PO SCH (08:56)
[2017-09-29] MEDS: BRIMONIDINE 0.15% OPH SOLN 1 DROP/DROPS BOTTLE BOTH EYES SCH ×2 (08:57→21:09)
[2017-09-29] MEDS: Umeclidinium Brm/Vilanterol Tr [Anoro Ellipta] INH SCH (08:58)
[2017-09-29] MEDS: CEFEPIME 1,000 MG in SYRINGE 1 EACH IV SCH ×2 (08:58→20:58)
[2017-09-29] MEDS: VANCOMYCIN INJ 1,000 MG in SODIUM CHLORIDE 0.9% 250 ML IV SCH ×2 (08:58→21:02)
[2017-09-29] MEDS: LEVOFLOXACIN INJ 500 MG in PREMIX 1 EACH IV SCH (16:20)
[2017-09-29] MEDS: LACTULOSE 20 GM/30 ML UDCUP PO PRN (21:03)
[2017-09-29] MEDS: MONTELUKAST 10 MG TABLET PO SCH (21:03)
[2017-09-29] MEDS: DOXAZOSIN 4 MG TABLET PO SCH (21:03)
[2017-09-29] MEDS: ENOXAPARIN 40 MG/0.4 ML SYRINGE SUBCUT SCH (21:08)
[2017-09-29] MEDS: BIMATOPROST 0.01% OPH SOLN 2.5 ML BOTTLE BOTH EYES SCH (21:09)
[2017-09-30] MEDS: ALBUTEROL/IPRATROPIUM 3 ML NEB RESP TX SCH ×4 (00:08→19:42)
[2017-09-30] MEDS: INSULIN REGULAR 100 UNIT/ML SUBCUT SCH ×6 (00:26→23:59)
[2017-09-30] MEDS: methylPREDNISolone SOD SUC 40 MG/1 ML VIAL IV SCH ×3 (03:00→22:01)
[2017-09-30] MEDS: FUROSEMIDE 40 MG TABLET PO SCH ×2 (09:02→16:55)
[2017-09-30] MEDS: PANTOPRAZOLE 40 MG TABLET PO SCH (09:02)
[2017-09-30] MEDS: NEBIVOLOL 5 MG TABLET PO SCH (09:02)
[2017-09-30] MEDS: LOSARTAN 25 MG TABLET PO SCH (09:02)
[2017-09-30] MEDS: POTASSIUM CHLORIDE 10 MEQ TABLET PO SCH ×2 (09:02→16:54)
[2017-09-30] MEDS: Umeclidinium Brm/Vilanterol Tr [Anoro Ellipta] INH SCH (09:03)
[2017-09-30] MEDS: BRIMONIDINE 0.15% OPH SOLN 1 DROP/DROPS BOTTLE BOTH EYES SCH ×2 (09:03→22:02)
[2017-09-30] MEDS: VANCOMYCIN INJ 1,000 MG in SODIUM CHLORIDE 0.9% 250 ML IV SCH ×2 (09:03→22:03)
[2017-09-30] MEDS: FLUTICASONE/SALMETEROL 500-50 DISKUS 14 DOSE INH SCH ×2 (09:03→22:02)
[2017-09-30] MEDS: LEVOFLOXACIN INJ 500 MG in PREMIX 1 EACH IV SCH (16:55)
[2017-09-30] MEDS: ENOXAPARIN 40 MG/0.4 ML SYRINGE SUBCUT SCH (22:01)
[2017-09-30] MEDS: DOXAZOSIN 4 MG TABLET PO SCH (22:01)
[2017-09-30] MEDS: MONTELUKAST 10 MG TABLET PO SCH (22:01)
[2017-09-30] MEDS: BIMATOPROST 0.01% OPH SOLN 2.5 ML BOTTLE BOTH EYES SCH (22:03)
[2017-09-30] MEDS: LACTULOSE 20 GM/30 ML UDCUP PO PRN (23:42)
[2017-10-01] MEDS: ALBUTEROL/IPRATROPIUM 3 ML NEB RESP TX SCH ×3 (00:38→14:40)
[2017-10-01] MEDS ORDERED: BISACODYL 5 MG TABLET PO PRN (04:03)
[2017-10-01] MEDS: VANCOMYCIN INJ 1,000 MG in SODIUM CHLORIDE 0.9% 250 ML IV SCH ×2 (05:42→13:51)
[2017-10-01] MEDS: INSULIN REGULAR 100 UNIT/ML SUBCUT SCH ×2 (07:04→11:56)
[2017-10-01] MEDS: methylPREDNISolone SOD SUC 40 MG/1 ML VIAL IV SCH (08:22)
[2017-10-01] MEDS: FUROSEMIDE 40 MG TABLET PO SCH (08:23)
[2017-10-01] MEDS: NEBIVOLOL 5 MG TABLET PO SCH (08:23)
[2017-10-01] MEDS: BRIMONIDINE 0.15% OPH SOLN 1 DROP/DROPS BOTTLE BOTH EYES SCH (08:23)
[2017-10-01] MEDS: FLUTICASONE/SALMETEROL 500-50 DISKUS 14 DOSE INH SCH (08:23)
[2017-10-01] MEDS: PANTOPRAZOLE 40 MG TABLET PO SCH (08:23)
[2017-10-01] MEDS: LOSARTAN 25 MG TABLET PO SCH (08:23)
[2017-10-01] MEDS: POTASSIUM CHLORIDE 10 MEQ TABLET PO SCH (08:23)
[2017-10-01] MEDS: Umeclidinium Brm/Vilanterol Tr [Anoro Ellipta] INH SCH (08:23)
[2017-10-01 09:18] LABS: Calcium 8.4 MG/DL (8.5-10.1); Osmolality,Calculated 274.8 MOS/KG (273-304)
[2017-10-01] MEDS ORDERED: NEBIVOLOL 10 MG TABLET PO SCH (10:15)
[2017-10-01 11:51] VITALS: BP 110/45
== END 2017-10-01 15:05 | disposition home health service (06) | DRG 208 ==
LOC: N.ED 13:51 → SUATTDRO 15:53 → N.EDINP 15:53 → N.ICU 16:53 → N.TELEN 09-28 10:09
PROVIDERS: ADMIT Internal Medicine; ATTEND Internal Medicine